=== PATIENT | female | born 1985 | race Caucasian/White ===

== ENCOUNTER 2018-02-04 19:21 | Emergency (ER) | payer MEDICAID ==
[~2018-02-04] VITALS: Ht 162.6 cm; Wt 85.9 kg
[2018-02-04 20:52] LABS: BASOPHIL % 1.9 % (0-2); PLATELET COUNT 316 x10^3mcL (130-400); RED CELL DISTRIBUTION WIDTH 12.6 % (11.5-14.5)
[2018-02-04 20:59] LABS: CALCIUM 8.6 mg/dL (8.5-10.1); CARBON DIOXIDE 29.2 mmol/L (21-32); CHLORIDE SERUM 98 mmol/L (98-107); GFR1 > 60 mL/min; GLUCOSE SERUM 220 mg/dL (74-106); POTASSIUM SERUM 3.3 mmol/L (3.5-5.1); SODIUM SERUM 136 mmol/L (136-145)
[2018-02-04 21:13] LABS: ALBUMIN 3.5 g/dL (3.4-5.0); ALKALINE PHOSPHATASE 69 U/L (46-116); ALT/SGPT 19 U/L (14-59); AST/SGOT 8 U/L (15-37); BILIRUBIN TOTAL 0.67 mg/dL (0.20-1.00); LIPASE 90 IU/L (73-393); TOTAL PROTEIN, SERUM 7.8 g/dL (6.4-8.2)
[2018-02-04 22:39] VITALS: BP 157/105
== END 2018-02-04 22:39 | disposition home or self-care (01) ==
LOC: ED 19:21
PROVIDERS: Emergency Medicine
DX: R11.2 Nausea with vomiting, unspecified (principal); R10.12 Left upper quadrant pain; R10.32 Left lower quadrant pain; E11.9 Type 2 diabetes mellitus without complications; I10 Essential (primary) hypertension
CPT/HCPCS: J1885; J2405; J7030

== ENCOUNTER 2018-04-05 12:22 | Emergency (ER) | payer MEDICAID ==
[~2018-04-05] VITALS: Ht 162.6 cm; Wt 78.0 kg
[2018-04-05 14:09] LABS: BASOPHIL % 0.9 % (0-2); PLATELET COUNT 369 x10^3mcL (130-400); RED CELL DISTRIBUTION WIDTH 14.1 % (11.5-14.5)
[2018-04-05 15:03] LABS: CALCIUM 9.4 mg/dL (8.5-10.1); CARBON DIOXIDE 25.4 mmol/L (21-32); CREATININE SERUM 1.4 mg/dL (0.6-1.0); POTASSIUM SERUM 3.3 mmol/L (3.5-5.1)
[2018-04-05 15:13] LABS: ALBUMIN 3.5 g/dL (3.4-5.0); BILIRUBIN TOTAL 0.67 mg/dL (0.20-1.00); T4(THYROXINE) 8.6 ug/dL (4.7-13.3); TOTAL PROTEIN, SERUM 8.2 g/dL (6.4-8.2)
[2018-04-05 16:10] LABS: UA SPECIFIC GRAVITY <=1.005 (1.005-1.035); microscopic required? YES; urine erythrocyte 1+ (NEGATIVE)
[2018-04-05 16:13] VITALS: BP 137/89
== END 2018-04-05 16:13 | disposition home or self-care (01) ==
LOC: ED 12:22
PROVIDERS: Emergency Medicine
DX: R10.13 Epigastric pain (principal); R11.10 Vomiting, unspecified; I10 Essential (primary) hypertension; E11.9 Type 2 diabetes mellitus without complications; E66.9 Obesity, unspecified; F17.210 Nicotine dependence, cigarettes, uncomplicated; Z90.49 Acquired absence of other specified parts of digestive tract
CPT/HCPCS: 82962; J2765; J7030; Q9967

== ENCOUNTER 2018-05-09 20:37 | Inpatient (IN) | payer MEDICAID ==
[~2018-05-09] VITALS: Ht 152.4 cm; Wt 77.2 kg
[2018-05-09 20:50] VITALS: Ht 152.4 cm; Wt 77.2 kg
--- NOTE | 2018-05-09 20:52 | NUR ---
PT SENT TO LOBBY TO WAIT FOR AVAILABLE BED. NO DISTRESS AND ALERT AND ORIENTED
--- NOTE | 2018-05-09 21:00 | NUR ---
PT CAME TO THE ED TODAY WITH C/O NAUSEA AND VOMTING WITH ABD PAIN. PT LEFT [facility] TODAY AFTER BEING ADMITTED FOR ONE WEEK. PT STATES THAT SHE LEFT BECAUSE "I DIDN'T WANT TO BE THERE ANYMORE." PT IS VOMITING IN ROOM, SHE APPEARS TO BE IN NO DISTRESS. WILL MONITOR.
[2018-05-09 21:52] LABS: BASOPHIL % 0.4 % (0-2); PLATELET COUNT 389 x10^3mcL (130-400); RED CELL DISTRIBUTION WIDTH 14.4 % (11.5-14.5)
[2018-05-09 21:58] LABS: CALCIUM 9.2 mg/dL (8.5-10.1); CARBON DIOXIDE 24.5 mmol/L (21-32); CHLORIDE SERUM 98 mmol/L (98-107); CREATININE SERUM 0.9 mg/dL (0.6-1.0); GFR1 > 60 mL/min; GLUCOSE SERUM 163 mg/dL (74-106); POTASSIUM SERUM 3.6 mmol/L (3.5-5.1); SODIUM SERUM 134 mmol/L (136-145)
[2018-05-09 22:10] LABS: ALBUMIN 3.3 g/dL (3.4-5.0); ALKALINE PHOSPHATASE 78 U/L (46-116); ALT/SGPT 37 U/L (14-59); AST/SGOT 21 U/L (15-37); BILIRUBIN TOTAL 0.6 mg/dL (0.20-1.00); FREE T4 1.39 ng/dL (0.76-1.46); LIPASE 82 IU/L (73-393); TOTAL PROTEIN, SERUM 7.4 g/dL (6.4-8.2)
--- NOTE | 2018-05-09 22:56 | NUR ---
PT AMBULATED TO RESTROOM TO PROVIDE URINE SAMPLE.
[2018-05-10] VITALS (8 sets, daily range): BP systolic 134–184; BP diastolic 80–90
[2018-05-10] LABS: UA SPECIFIC GRAVITY 1.025 (1.005-1.035); microscopic required? YES; urine erythrocyte TRACE (NEGATIVE)
[2018-05-10 00:16] LABS: AMPHETAMINE QUAL UR NONE DETECTED (See below)
[2018-05-10 01:12] LABS: CHOLESTEROL/HDL RATIO 3.5; MAGNESIUM 1.5 mg/dL (1.8-2.4); PHOSPHOROUS 2.7 mg/dL (2.5-4.9)
--- NOTE | 2018-05-10 02:30 | NUR ---
RECEIVED PT FROM ED VIA GURNEY, ACCOMPANY BY NURSE. FAMILY AT BEDSIDE. PT AAOX4, DENIES HEADACHE OR DIZZINESS. TELE 16 ST HR 118 DENIES CHEST PAIN OR PRESSURE. LUNG SOUNDS CTA ON RA, NO SOB NOTED. ABD SOFT AND ROUND, ACTIVE BOWEL SOUNDS, REPORTS FEELING NAUSEAUS. NO EDEMA NOTED. IV LEFT WRIST PATENT, NO SIGNS OF INFILTRATION. CALL BUTTON WITHIN REACH. WILL MONITOR.
--- NOTE | 2018-05-10 03:36 | NUR ---
PT REPORTED FEELING NAUSEAS, ZOFRAN GIVEN PER EMAR. PT REPORTED HAVING ABD PAIN 8/10, MEDICATED PER EMAR. WILL CONTINUE TO MONITOR.
[2018-05-10 06:20] LABS: BASOPHIL % 0.4 % (0-2); PLATELET COUNT 340 x10^3mcL (130-400); RED CELL DISTRIBUTION WIDTH 14.5 % (11.5-14.5)
--- NOTE | 2018-05-10 06:42 | NUR ---
ACCU CHECK 143 NO COVERAGE NEEDED PER SLIDING SCALE.
[2018-05-10 06:44] LABS: CALCIUM 8.2 mg/dL (8.5-10.1); CARBON DIOXIDE 24.5 mmol/L (21-32); CHLORIDE SERUM 102 mmol/L (98-107); CREATININE SERUM 0.6 mg/dL (0.6-1.0); GFR1 > 60 mL/min; GLUCOSE SERUM 154 mg/dL (74-106); MAGNESIUM 1.5 mg/dL (1.8-2.4); POTASSIUM SERUM 3.5 mmol/L (3.5-5.1); SODIUM SERUM 136 mmol/L (136-145)
--- NOTE | 2018-05-10 07:01 | NUR ---
PT SLEPT ON AND OFF WITH NO ACUTE DISTRESS NOTED. REPORTED FEELING NAUSEAS ON AND OFF, WITH ONE EPISODE OF VOMIT SMALL AMOUNT CLEAR LIQUID. IV PATENT, INFUSING WELL. CALL BUTTON WITHIN REACH. WILL CONTINUE TO MONITOR AND ENDORSE CARE TO DAY SHIFT RN.
--- NOTE | 2018-05-10 07:43 | NUR ---
ENDORSED CARE TO DAY SHIFT RN, ALL QUESTIONS ADDRESSED.
--- NOTE | 2018-05-10 08:30 | NUR ---
PATIENT C/O 10/10 EPIGASTRIC SHARP PAIN AND N/V. PATIENT MEDICATED WITH MORPHINE AND ZOFRAN (SEE EMAR). WILL CONTINUE TO MONITOR.
--- NOTE | 2018-05-10 09:26 | NUR ---
PATIENT VOMITED APPROX 300 ML OF YELLOW EMESIS. ZOFRAN PREVIOUSLY GIVEN (SEE EMAR). WILL CONTINUE TO MONITOR.
--- NOTE | 2018-05-10 12:40 | NUR ---
PATIENT VOMITED APPROX ANOTHER 300 ML OF YELLOW EMESIS. WILL CONTINUE TO MONITOR.
--- NOTE | 2018-05-10 13:00 | NUR ---
PATIENT C/O 10/10 EPIGASTRIC SHARP PAIN. NORCO SUGGESTED AND PATIENT REFUSED DUE TO NAUSEA AND STATES SHE CAN'T TAKE ORAL MEDICATIONS. PATIENT MEDICATED WITH MORPHINE (SEE EMAR). WILL CONTINUE TO MONITOR.
--- NOTE | 2018-05-10 17:10 | NUR ---
PATIENT C/O 10/10 SHARP EPIGASTRIC PAIN WITH N/V. PATIENT MEDICATED WITH MORPHINE AND ZOFRAN (SEE EMAR). WILL CONTINUE TO MONITOR.
--- NOTE | 2018-05-10 19:30 | NUR ---
PT SEEN, ASLEEP BUT EASILY AROUSABLE, ALERT AND ORIENTED, DENIES HEADACHE OR DIZZINESS, BREATHING EVEN AND UNLABORED, LUNG SOUNDS CLEAR, ON ROOM AIR WITH NO RESP DISTRESS NOTED, IVF INFUSING WELL, PULSES PALPABLE, NO EDEMA NOTED, MILD GENERALIZED WEAKNESS, ABD DISTENDED BUT SOFT WITH HYPOACTIVE BS, NO BM AT THIS TIME, NPO, N&V NOTED AT TIMES, VOIDING FREELY, NEEDY AT TIMES.
[2018-05-11 05:30] VITALS: BP 166/97
--- NOTE | 2018-05-11 05:30 | NUR ---
PT AWAKE AND AMBULATED TO BATHROOM, SLEPT ON AND OFF WHOLE NIGHT, ON AND OFF N&V, MEDICATED MORPHINE 2MG VIA IVP X 3 FOR ABD PAIN WITH GOOD RELIEF, BP-166/97, HYDRALAZINE 10 MG VIA IVP, OLD IV SITE TO LW INFILTRATED, RE-INSERTED TO WITH 22G. NO DISTRESS NOTED, WILL KEEP TO MONITOR.
[2018-05-11 06:34] VITALS: BP 142/70
[2018-05-11 07:57] LABS: CALCIUM 8.3 mg/dL (8.5-10.1); CARBON DIOXIDE 26.3 mmol/L (21-32); CHLORIDE SERUM 99 mmol/L (98-107); CREATININE SERUM 0.6 mg/dL (0.6-1.0); GFR1 > 60 mL/min; GLUCOSE SERUM 117 mg/dL (74-106); MAGNESIUM 1.6 mg/dL (1.8-2.4); PHOSPHOROUS 3.6 mg/dL (2.5-4.9); SODIUM SERUM 134 mmol/L (136-145)
[2018-05-11 08:11] LABS: BASOPHIL % 0.7 % (0-2); PLATELET COUNT 350 x10^3mcL (130-400)
[2018-05-11 08:14] LABS: RED CELL DISTRIBUTION WIDTH 14.7 % (11.5-14.5)
[2018-05-11 08:18] VITALS: BP 153/93
--- NOTE | 2018-05-11 10:03 | NUR ---
DR PAYNE AND DR ZAVALA AT BEDSIDE AND DISCUSSED THE POC WITH PT AND PT'S MOTHER. PER DR PAYNE THAT OKAY TO LET PT HAVE WATER AT THIS TIME. CT A/P DONE.
--- NOTE | 2018-05-11 13:22 | NUR ---
BEDSIDE HANDOFF REPORT DONE WITH VESNA-RN, ALL QUESTIONS ANSWERED AND CONCERNS ADDRESSED. PT ASLEEP AND APPEARS COMFORTABLE. NO S&S OF PAIN OR DISCOMFORT.
--- NOTE | 2018-05-11 13:27 | NUR ---
BEDSIDE REPORT RECEIVED FROM LARS RN; PT ASLEEP AT THIS TIME, NO S/S CHEST PAIN, DISCOMFORT, OR RESPIRATORY DISTRESS. SIDE RAILS UP X 2, BED IN LOW POSITION, CALL LIGHT WITHIN REACH. WILL CONTINUE TO MONITOR.
--- NOTE | 2018-05-11 14:59 | NUR ---
PT C/O NAUSEA AND BURNING ABD PAIN 09/22; GIVEN ZOFRAN 4MG IVP AND MORPHINE 2MG IVP; DARKENED ROOM, TURNED OFF TV FOR COMFORT. WILL CONTINUE TO MONITOR.
--- NOTE | 2018-05-11 15:23 | NUR ---
1. Advance diet to [facility] when medically appropriate and tolerated.
--- NOTE | 2018-05-11 15:23 | NUR ---
Initial Nutrition Assessment- -A TEMO GOTTI IA HR Dx: Intractable abdominal pain PMHx: gastroparesis, HTN, DM, PSHx: cholecystectomy Labs: Na 134L, K 3.0L, (BG readings from 05/10-05/11: 106-121 all under 180,insulin coverage provided PRN) , BUN 6.0L, Meds: D50, Humilin 3 ml PRN, Pepcid 20 mg, Reglan 5 mg, Zofran 4 mg Diet: clear liquid diet (per current diet order by MD) PO Intake: none documented as pt was previously NPO Ht: 152.4 cm 60 inches Wt: 77.2 kg (169.8 #) BMI: 33.2 kg/m2 IBW: 100 # 45.5 kg %IBW:170 UBW: unable to access Age: 32/F Food Allergies: NKFA Skin: intact Vj: 19 Edema: none GI: last BM 05/07/18 Per H&P, Pt is 32 year old female admitted for 10 abdominal pain in epigastric region and nausea. She was admitted to [facility] 3 weeks ago and diagnosed with gastroparesis however left against medical advice. Imaging: ABD: KUB (AP/PA) (05/10/18) Findings: A single AP view of the abdomen shows a nonspecific abdominal gas pattern. There is no free air or submucosal air demonstrated. No abnormal calcifications are demonstrated. (per imaging report) Pt visit, pt was sleeping so acquired diet related information from nurse in charge. Diet was progressed from NPO to clear liquid. However, pt refused it. She complain of nausea and abdominal pain. Problem with: N: yes V/D/C: No Problems with: Chewing: No Swallowing: No Current appetite: Unknown Recent wt change: unable to access Vitamin/Supplement use: unknown Special diet at home: unknown Physical activity: unknown Education: No diet education provided at this time. Estimated Nutritional Needs Based on actual body weight 77.2 kg Energy: 1138- 1365 kcal/d (25-30 kcal/kg IBW-maintenance) Protein: 46-55 g/d (1-1.2g/kg IBW)-maintenance and preservation of lean body mass Fluid: 2911-0182 ml/d (1 ml/kcal-fluid balance) or per doctor Nutrition Diagnosis 1. Altered GI function related to gastroparesis as evidenced by nausea and abdominal pain. 2. Inadequate energy intake related to nausea and abdominal pain as evidenced by NPO/ clear liquid diet orders and declining oral intake. Intervention 1. Advance diet to [facility] when medically appropriate and tolerated. Monitor/Evaluate Goal: PO intake at least % of estimated needs Monitor: PO intake, Labs, GI function F/U in 3-5 days as moderate risk due 05/14-05/16
--- NOTE | 2018-05-11 17:20 | NUR ---
PT IN BED, A/A/O X 4, TALKING TO FRIEND BY BEDSIDE. DENIES CHEST PAIN OR DISCOMFORT AT THIS TIME. NO ACUTE RESPIRATORY DISTRESS NOTED. SIDE RAILS UP X 2, BED IN LOW POSITION, CALL LIGHT WITHIN REACH. WILL ENDORSE TO NOC SHIFT.
[2018-05-11 17:31] VITALS: BP 183/97
--- NOTE | 2018-05-11 17:45 | NUR ---
PT'S BP 184/97, HR 104; GIVEN HYDRALAZINE IVP 10MG; WILL CONTINUE TO MONITOR.
[2018-05-11 18:51] VITALS: BP 126/80
--- NOTE | 2018-05-11 19:00 | NUR ---
ENDORSED PT TO NILES CANTOR; PT A/A/O X 4, CALM, COOPERATIVE. DENIES CHEST PAIN OR DISCOMFORT AT THIS TIME. NO ACUTE RESPIRATORY DISTRESS NOTED. SIDE RAILS UP X 2, BED IN LOW POSITION, CALL LIGHT WITHIN REACH.
--- NOTE | 2018-05-11 19:50 | NUR ---
PT RECIEVED FROM THE DAY SHIFT RN, PT IS ALERT AND ORIENTED X4, PT IV IS INFUSING AND INTACT AT THIS TIME. PT COMPLAINS OF GENERALIZED ABDOMINAL PAIN, PT STATES IT FEELS LIKE A PULSATING PAIN, WILL MEDICATE WITH PRN MEDICATION, PT STATES NAUSEA HAS GOTTEN BETTER, SAFETY AND COMFORT MEASURES MAINTAINED, BED IN LOWEST POSITION, CALL LIGHT WITHIN REACH, WILL CONTINUE TO MONITOR AT THIS TIME.
[2018-05-11 21:03] VITALS: BP 147/88
--- NOTE | 2018-05-11 22:51 | NUR ---
PT IS RESTING IN BED WITH EYES CLOSED AT THIS TIME, NO ACUTE DISTRESS NOTED, SAFETY AND COMFORT MEASURES MAINTAINED, BED IN LOWEST POSITION, CALL LIGHT WITHIN REACH, WILL CONTINUE TO MONITOR AT THIS TIME.
--- NOTE | 2018-05-12 01:10 | NUR ---
PT STATES PAIN IN THE UPPER EPIGASTRIC AREA AND PAIN IS A 8/10 AND STATES IT FEELS LIKE "ITS PULSATING." WILL MEDICATE WITH PRN NORCO AT THIS TIME.
--- NOTE | 2018-05-12 03:08 | NUR ---
PT IS RESTING WITH EYES CLOSED, NO ACUTE DISTRESS NOTED, NO SOB NOTED, NO FACIAL GRIMACING NOTED. PT HAS BEEN CALM AND COOPERATIVE WITH CARE, SAFETY AND COMFORT MEASURES MAINTAINED, BED IN LOWEST POSITION, CALL LIGHT WITHIH REACH.
--- NOTE | 2018-05-12 04:18 | NUR ---
PT IS RESTING IN BED WITH EYES CLOSED AT THIS TIME. NO ACUTE DISTRESS NOTED, NO FACIAL GRIMACING NOTED, PT HAS BEEN CALM AND COOPERATIVE WITH CARE AT THIS TIME. SAFETY AND COMFORT MEASURES MAINTAINED, BED IN LOWEST POSITION, CALL LIGHT WITHIN REACH, WILL CONTINUE TO MONITOR AT THIS TIME.
[2018-05-12 05:08] VITALS: BP 130/80
--- NOTE | 2018-05-12 05:19 | NUR ---
PT RESTED IN LONG INTERVALS THROUGHOUT THE SHIFT, NO ACUTE DISTRES NOTED, NO ACUTE EVENTS OCCURED THROUGHOUT THE SHIFT, PT HAS NO COMPLAINT OF NAUSEA OR PAIN AT THIS TIME. PT HAS BEEN CALM AND COOPERATIVE WITH CARE, ALERT AND ORIENTED X4, SAFETY AND COMFORT MEASURES MAINTAINED, BED IN LOWEST POSITION, CALL LIGHT WITHIN REACH, IV INFUSING AND INTACT. WILL CONTINUE TO MONITOR.
[2018-05-12 05:46] LABS: BASOPHIL % 0.5 % (0-2); PLATELET COUNT 331 x10^3mcL (130-400); RED CELL DISTRIBUTION WIDTH 14.5 % (11.5-14.5)
[2018-05-12 05:58] LABS: CALCIUM 7.9 mg/dL (8.5-10.1); CARBON DIOXIDE 28.4 mmol/L (21-32); CHLORIDE SERUM 101 mmol/L (98-107); CREATININE SERUM 0.5 mg/dL (0.6-1.0); GFR1 > 60 mL/min; GLUCOSE SERUM 103 mg/dL (74-106); MAGNESIUM 1.8 mg/dL (1.8-2.4); PHOSPHOROUS 3.5 mg/dL (2.5-4.9); SODIUM SERUM 135 mmol/L (136-145)
--- NOTE | 2018-05-12 07:10 | NUR ---
RECEIVED REPORT FROM ACCOUNTING FILE CLERK NURSE AT THIS TIME. PATIENT RESTING COMFORTABLY IN BED. NO APPARENT DISTRESS OR DISCOMFORT NOTED. BREATHING EVEN AND UNLABORED. NO RESPIRATORY DISTRESS NOTED. PATIENT DENIES CHEST PAIN AT THIS TIME. IV PATENT AND INTACT. ALL QUESTIONS AND CONCERNS ADDRESSED. ALL NEEDS ATTENDED TO. WILL CONTINUE TO MONITOR
[2018-05-12 07:51] VITALS: BP 156/92
--- NOTE | 2018-05-12 09:20 | NUR ---
PATIENT C/O 10/10 ABD PAIN AT THIS TIME. PRN MORPHINE ADMINISTERED. (SEE EMAR) PATIENT TOLERATED MEDICATION ADMINISTRATION WELL. NO ADVERSE EFFECTS NOTED. ALL NEEDS ATTENDED TO. WILL CONTINUE TO MONITOR
--- NOTE | 2018-05-12 10:00 | NUR ---
ALL MORNING MEDICATIONS ADMINISTERED. PATIENT TOLERATED WELL. NO APPARENT DISTRESS OR DISCOMFORT NOTED. NO ADVERSE EFFECTS NOTED. ALL NEEDS ATTENDED TO. WILL CONTINUE TO MONITOR
--- NOTE | 2018-05-12 10:36 | NUR ---
PATIENT HAD EMESIS X1. TRANSDERM-SCOP PLACED BEHIND PATIENTS LEFT EAR. PRN ZOFRAN ADMINISTERED (SEE EMAR). PATIENT TOLERATED WELL. NO ADVERSE EFFECTS NOTED. WILL CONTINUE TO MONITOR
--- NOTE | 2018-05-12 12:25 | NUR ---
PATIENT BLOOD SUGAR 130 AT THIS TIME. NO INSULIN COVERAGE REQUIRED. NO APPARENT DISTRESS OR DISCOMFORT NOTED. ALL NEEDS ATTENDED TO. WILL CONTINUE TO MONITOR
[2018-05-12 16:10] VITALS: BP 160/87
--- NOTE | 2018-05-12 17:12 | NUR ---
PATIENT BP 160/87 HEART RATE 99. ADMINISTERED HYDRALAZINE PO AT THIS TIME. PATIENT TOLERATED WELL. NO ADVERSE EFFECTS NOTED. ALL NEEDS ATTENDED TO. WILL RECHECK BLOOD PRESSURE
[2018-05-12 18:23] VITALS: BP 155/88
--- NOTE | 2018-05-12 19:06 | NUR ---
PATIENT RESTING COMFORTABLY IN BED AT THIS TIME. NO APPARENT DISTRESS OR DISCOMFORT NOTED. IV PATENT AND INTACT. ALL QUESTIONS AND CONCERNS ADDRESSED. SAFETY PRECAUTIONS MAINTAINED. ALL NEEDS ATTENDED TO. WILL ENDORSE ALL CARE TO SENIOR [employer]AL PARACHUTIST NURSE
--- NOTE | 2018-05-12 19:25 | NUR ---
REPORT RECIEVED FROM DAY SHIFT RN. PATIENT WAS SEEN AND IS RESTING COMFORTBALY IN BED. ON ROOM AIR. BREATHING EVEN. NO DISTRESS NOTED. NO SOB. DENIES CHEST PAIN. NO C/O OF PAIN. IV TO THE RIGHT HAND INFUSING WELL. PATIENT AND INTACT. NO REDNESS OR SWELLING NOTED. COMFORT AND SAFETY MEASURES MAINTAINED. BED IS LOCKED AND IN THE LOWEST POSITION. SIDE RAILS UP X2. CALL LIGHT IS WITHIN REACH. INSTRUCTED PATIENT TO CALL FOR ASSISTANCE. WILL CONTINUE TO MONITOR.
[2018-05-12 21:04] VITALS: BP 148/91
--- NOTE | 2018-05-13 03:51 | NUR ---
PATIENT RESTING WITH EYES CLOSED AT THIS TIME. NO DISTRESS NOTED. BREATHIN EVEN. IV TO THE RIGHT HAND INFUSING WELL. CALL LIGHT IS WITHIN REACH. WILL CONTINUE TO MONITOR.
[2018-05-13 05:27] VITALS: BP 150/83
--- NOTE | 2018-05-13 06:55 | NUR ---
PATIENT SLEPT IN LONG INTERVALS THROUGHOUT THE NIGHT. NO ACUTE CHANGES NOTED. DENIES NAUSEA AT THIS TIME. ON ROOM AIR. BREATHING EVEN. NO DISTRESS NOTED. IV TO RIGHT HAND. PATENT AND INTACT. NO REDNESS OR SWELLING NOTED. NO C/O OF PAIN THROUGHOUT THE NIGHT. EDUCATED PATIENT ON ALL SCHEDULED MEDS. COMFORT AND SAFETY MEASURES MAINTAINED. BED IS LOCKED AND IN THE LOWEST POSITION. SIDE RAILS UP X2. CALL LIGHT IS WITHIN REACH. WILL ENDORSE CARE TO DAY SHIFT RN.
--- NOTE | 2018-05-13 07:05 | NUR ---
RECEIVED PATIENT FROM RECORDS MANAGER NURSE AT THIS TIME. PATIENT RESTING COMFORTABLY IN BED. NO APPARENT DISTRESS OR DISCOMFORT NOTED. BREATHING EVEN AND UNLABORED. NO RESPIRATORY DISTRESS NOTED. NO INDICATION OF CHEST PAIN AT THIS TIME. IV PATENT AND INTACT. ALL QUESTIONS AND CONCERNS ADDRESSED. ALL NEEDS ATTENDED TO. WILL CONTINUE TO MONITOR
[2018-05-13 07:23] LABS: BASOPHIL % 0.7 % (0-2); PLATELET COUNT 332 x10^3mcL (130-400)
[2018-05-13 07:48] LABS: CALCIUM 8.1 mg/dL (8.5-10.1); CARBON DIOXIDE 27.7 mmol/L (21-32); CHLORIDE SERUM 101 mmol/L (98-107); CREATININE SERUM 0.5 mg/dL (0.6-1.0); GFR1 > 60 mL/min; GLUCOSE SERUM 124 mg/dL (74-106); MAGNESIUM 1.6 mg/dL (1.8-2.4); PHOSPHOROUS 2.8 mg/dL (2.5-4.9); POTASSIUM SERUM 3.4 mmol/L (3.5-5.1); SODIUM SERUM 136 mmol/L (136-145)
[2018-05-13 08:01] LABS: RED CELL DISTRIBUTION WIDTH 14.8 % (11.5-14.5)
--- NOTE | 2018-05-13 08:05 | NUR ---
REPORTED TO HEALTH UNIT SUPERVISOR DEREK PATIENTS POTASSIUM OF 3.4 AND MAG OF 1.6. WILL PROCEED ORDERED. WILL CONTINUE TO MONITOR PATIENT
[2018-05-13 09:00] VITALS: BP 149/72
--- NOTE | 2018-05-13 09:14 | NUR ---
PATIENT EMESIS X1. MEDICATED WITH PHENERGAN IVP AT THIS TIME. PATIENT TOLERATED WELL. ALL NEEDS ATTENDED TO. WILL CONTINUE TO MONITOR
--- NOTE | 2018-05-13 09:48 | NUR ---
ALL MORNING MEDICATIONS ADMINISTERED. PATIENT TOLERATED MEDICATIONS WELL. NO ADVERSE EFFECTS NOTED. WILL CONTINUE TO MONITOR
--- NOTE | 2018-05-13 11:30 | NUR ---
PATIENT BLOOD SUGAR 171. 3 UNITS OF INSULIN COVERAGE REQUIRED. INSULIN NOT ADMINISTERED AT THIS TIME. PATIENT C/O POOR APPETITE. NICK ROGERS WILL CONTINUE TO MONITOR
--- NOTE | 2018-05-13 16:30 | NUR ---
PATIENT BLOOD SUGAR 163 AT THIS TIME. 3 UNITS INSULIN REQUIRED. (SEE EMAR). WILL CONTINUE TO MONITOR
[2018-05-13 17:03] VITALS: BP 138/85
--- NOTE | 2018-05-13 18:49 | NUR ---
PATIENT RESTING COMFORTABLY IN BED AT THIS TIME. NO APPARENT DISTRESS OR DISCOMFORT NOTED. IV PATENT AND INTACT. ALL QUESTIONS AND CONCERNS ADDRESSED. SAFETY PRECAUTIONS MAINTAINED. ALL NEEDS ATTENDED TO. WILL ENDORSE ALL CARE TO FOLLOW UP CLERK NURSE
--- NOTE | 2018-05-13 19:20 | NUR ---
RECEIVED REPORT FROM MATHIEU CAGE. WILL CONTINUE TREATMENT AND CARE.
--- NOTE | 2018-05-13 19:45 | NUR ---
ASSESSED PT. AAOX4, SPEECH CLEAR. BREATHING EVEN AND UNLABORED. PT ON RA. PT STATES NO PAIN AT THIS TIME. LUNG SOUNDS CLEAR TO AUSCULATION. BS ACTIVE X4. PT STATES NO N/V AT THIS TIME. NS RUNNING AT 100CC/HR TO R HAND 22 G. NO S/SX OF INFILTRATION OR PHLEBITIS NOTED. SKIN INTACT. PT IS AMBULATORY. BED IN LOW POSITION. CALL LIGHT WITHIN REACH. WILL CONTINUE TO MONTIOR.
[2018-05-13 21:38] VITALS: BP 150/99
--- NOTE | 2018-05-13 22:54 | NUR ---
MAG 1.6, K+ 3.4.PT GIVEN MAG OX 400MG PO AND POTASSIUM CHLORIDE 40MEQ PO PER DR. MARICRUZ BLAIR.
--- NOTE | 2018-05-14 00:37 | NUR ---
PT GIVEN ROUTINE REGLAN PER MD ORDER. NO N/V NOTED AT THIS TIME.
--- NOTE | 2018-05-14 05:12 | NUR ---
PT RESTING COMFORTABLY IN BED AND SLEPT WELL THROUGHOUT NIGHT. NO PAIN THOUGHOUT SHIFT. NO SOB OF RESPIRATORY DISTRESS. NO N/V. IV FLUIDS REMAIN INFUSING AT 100CC/HR TO R HAND, INTACT AND PATENT. NO INFILTRATION OR PHLEBITIS NOTED. ALL NEEDS MET AND ANTICIPATED. BED IN LOW POSITION. WILL ENDORSE TO ONCOMING NURSE.
[2018-05-14 05:23] VITALS: BP 154/87
--- NOTE | 2018-05-14 07:20 | NUR ---
ALERT AND ORIENTED. BREATHING FREELY ON RA. HAVING N/V. ADMIN ZOFRAN. IB TO RT HAND BEGINNING TO SWELL AND WILL NEED TO BE REINSERTED. BRP. FULL LIQUIDS. MED SURG PT. INDEPENDENT W ADL'S. CALL LIGHT WITHIN REACH.
--- NOTE | 2018-05-14 07:29 | NUR ---
GAVE REPORT TO LAKESHA CAGE. ALL QUESTIONS AND CONCERNS ADDRESSED.
[2018-05-14 08:20] VITALS: BP 138/97
[2018-05-14 08:42] LABS: CALCIUM 8.9 mg/dL (8.5-10.1); CHLORIDE SERUM 101 mmol/L (98-107); CREATININE SERUM 0.6 mg/dL (0.6-1.0); GFR1 > 60 mL/min; GLUCOSE SERUM 158 mg/dL (74-106); MAGNESIUM 1.5 mg/dL (1.8-2.4); POTASSIUM SERUM 3.3 mmol/L (3.5-5.1); SODIUM SERUM 136 mmol/L (136-145)
--- NOTE | 2018-05-14 12:11 | NUR ---
PT CONTINUES TO FEEL NAUSEOUS. IV HAND SWOLLEN. NEEDS NEW IV. PT. REFUSES AT THIS TIME, SAYS SHE CAN N OT TAKE HER PO KCL AT THIS TIME EITHER.
[2018-05-14 16:42] VITALS: BP 158/97
--- NOTE | 2018-05-14 19:00 | NUR ---
RECEIVED PT IN BED ASLEEP EASILY AROUSABLE.NO SOB NOTED. NO C/O PAIN AT THIS TIME. DENIES NAUSEA AND VOMITING.IV SITE PATENT AND INTACT. BED IN LOWEST POSITION,CALL LIGHT WITHIN REACH. WILL CONTINUE TO MONITOR.
--- NOTE | 2018-05-14 20:06 | NUR ---
MULTIPLE EMESIS THIS AM. PT SLEPT ALOT OF THE AFTERNOON WHEN SHE QUIT VOMITING. RECEIVED MAG RIDER,KRIDER AND ROCEPHIN. NS INFUSING 100 CC HOUR. BRP. POOR APPETITE WITH FULL LIQUIDS. CALL LIGHT WITH IN REACH. INDEPENDENT W ADL'S.
[2018-05-14 20:44] VITALS: BP 155/101
--- NOTE | 2018-05-15 00:30 | NUR ---
PT VOMITED X1 WITH 50CC VOMITUS. MEDICATED REGLAN ORDERED. WILL CONTINUE TO MONITOR.
[2018-05-15 04:49] VITALS: BP 125/79
[2018-05-15 06:31] LABS: PLATELET COUNT 364 x10^3mcL (130-400)
[2018-05-15 06:42] LABS: CALCIUM 8.7 mg/dL (8.5-10.1); CARBON DIOXIDE 28.2 mmol/L (21-32); CHLORIDE SERUM 100 mmol/L (98-107); CREATININE SERUM 0.6 mg/dL (0.6-1.0); GFR1 > 60 mL/min; GLUCOSE SERUM 124 mg/dL (74-106); POTASSIUM SERUM 3.4 mmol/L (3.5-5.1); SODIUM SERUM 134 mmol/L (136-145)
[2018-05-15 06:44] LABS: RED CELL DISTRIBUTION WIDTH 14.6 % (11.5-14.5)
--- NOTE | 2018-05-15 07:10 | NUR ---
RECEIVED PT FROM FIRER RETORT. PT AWAKE, ALERT. A/OX4. PT ON ROOM AIR WITH NO RESP DISTRESS NOTED. PT DENIES HEADACHE. PT DENIES PAIN AND NAUSEA AT THIS TIME. IV ACCESS LEFT HAND, C/D/I SALINE LOCKED AT THIS TIME. PT REFUSES FLUIDS AT THIS TIME. HYPOACTIVE BOWEL SOUNDS NOTED. PT REPORTS LAST BM 05/10. PT NOTED TO HAVE MILD WEAKNESS. SAFETY MEASURES IN PLACE, BED LOW AND LOCKED. CALL LIGHT WITHIN REACH.
--- NOTE | 2018-05-15 07:24 | NUR ---
CARE ENDORSED TO DAY NURSE FERNIE.
[2018-05-15 09:49] VITALS: BP 156/100
[2018-05-15 09:50] VITALS: BP 167/99
--- NOTE | 2018-05-15 10:05 | NUR ---
CALLED AND SPOKE TO SIDDHRATH(N.P.) OF CURRENT BP-166/99, SHE SAYS WILL ADD BP MEDICATION.
[2018-05-15] MEDS ORDERED: NOR5 PO (10:11)
[2018-05-15] MEDS ORDERED: ZESTRIL20 MG PO (10:11)
[2018-05-15 10:21] VITALS: BP 167/99
--- NOTE | 2018-05-15 12:53 | NUR ---
1. Advance diet to [facility] when medically appropriate and tolerated.
--- NOTE | 2018-05-15 12:53 | NUR ---
Follow-up Nutrition Assessment- NARESH GOTTITANJA MORENO MR Dx: INTRACTABLE ABDOMINAL PAIN Labs: (05/15) NA 134H, K 3.4L, BG 124H, BUN 4.0L, MG 1.5L, Meds: D50, Humulin, kcl 10%, mag-ox 400mg , Pepcid, Reglan, zofran Diet: Full liquid PO intake: not documented Weights: (05/10/18) 77 KG (170#) Skin: intact Vj:19 Edema: none Last BM: 05/10/18 RDN visit, patient was awake and alert. She said that on a scale of 1-10, she has an appetite of 4. She consumed some of her lunch today. She complains of constipation. No N/V/D at this time. Patient denied DM diet education. Estimated Nutritional Needs based on IBW 46 kg: Energy: 1150- 1380 kcal (25-30 kcal-maintenance) Protein: 46-55 g (1-1.2 g/kg-maintenance and prevention of lean body mass losses) Fluid: 3873-5873 mL (1 mL/kcal or per MD order-for fluid balance and maintenance) Nutrition Diagnosis 1. Inadequate energy intake related to medical condition as evidenced by self- reported poor oral intake and restrictive diet orders since admission. Intervention 1. Advance diet to [facility] when medically appropriate and tolerated. Monitor/Evaluate Previous goal: PO intake at least 75% of estimated needs (not met) Goal: PO intake at least 75% of estimated needs Monitor: PO intake, Labs, GI function F/U in 3-5 days as moderate risk : 05/18-05/20
--- NOTE | 2018-05-15 14:15 | NUR ---
DISCHARGE INSTRUCTIONS/EDUCATION PROVIDED TO PT. PT VERBALIZED UNDERSTANDING. PT TO FOLLOW UP WITH PCP. NO ACUTE DISTRESS/ DISCOMFORT, NAUSEA OR VOMITING AT THIS TIME. IV ACCESS REMOVED WITH CATHETER INTACT. PT TOLERATED WELL. NO ERRYTHEMA, SWELLING OR BLEEDING NOTED. SAFETY MAINTAINED. EDUCATION PROVIDED ON NEW MEDICATION.
--- NOTE | 2018-05-15 14:32 | NUR ---
PT TAKEN BY WHEELCHAIR TO FAMILY CAR. SAFETY MAINTAINED.
== END 2018-05-15 14:35 | disposition home or self-care (01) | DRG 48 ==
LOC: ED 20:37 → DU 05-10 00:32 → MU 05-10 00:32 → DU 05-10 02:12 → MU 05-11 11:17
PROVIDERS: Emergency Medicine; General Practice; ADMIT Internal Medicine
DX: E11.43 Type 2 diabetes mellitus with diabetic autonomic (poly)neuropathy (principal); N17.0 Acute kidney failure with tubular necrosis; E11.65 Type 2 diabetes mellitus with hyperglycemia; E87.1 Hypo-osmolality and hyponatremia; E83.42 Hypomagnesemia; N39.0 Urinary tract infection, site not specified; K31.84 Gastroparesis; I16.0 Hypertensive urgency; K59.00 Constipation, unspecified; F12.10 Cannabis abuse, uncomplicated; F13.10 Sedative, hypnotic or anxiolytic abuse, uncomplicated; F11.10 Opioid abuse, uncomplicated; R80.9 Proteinuria, unspecified; Z68.26 Body mass index [BMI] 26.0-26.9, adult; Z79.84 Long term (current) use of oral hypoglycemic drugs; Z91.19 Patient's noncompliance with other medical treatment and regimen
CPT/HCPCS: 82962; 83880; 84439; G0480; J0360; J0696; J2270; J2405; J2550; J2765; J3475; J3480; J3490; J7030; Q0092

== ENCOUNTER 2018-05-19 19:13 | Inpatient (IN) | payer MEDICAID ==
[~2018-05-19] VITALS: Ht 165.1 cm; Wt 79.4 kg
[~2018-05-19 19:13] MED LIST: NOR5 PO; ZESTRIL20 MG PO
[2018-05-19 19:19] VITALS: Ht 165.1 cm; Wt 79.4 kg
[2018-05-19 20:01] LABS: BASOPHIL % 0.5 % (0-2); RED CELL DISTRIBUTION WIDTH 14.4 % (11.5-14.5)
[2018-05-19 20:04] LABS: CALCIUM 9.3 mg/dL (8.5-10.1); CARBON DIOXIDE 22.3 mmol/L (21-32); CHLORIDE SERUM 98 mmol/L (98-107); CREATININE SERUM 0.8 mg/dL (0.6-1.0); GFR1 > 60 mL/min; GLUCOSE SERUM 202 mg/dL (74-106); POTASSIUM SERUM 3.4 mmol/L (3.5-5.1); SODIUM SERUM 136 mmol/L (136-145)
[2018-05-19 20:05] LABS: PLATELET COUNT 401 x10^3mcL (130-400)
[2018-05-19 20:09] LABS: ALBUMIN 3.5 g/dL (3.4-5.0); ALKALINE PHOSPHATASE 76 U/L (46-116); ALT/SGPT 32 U/L (14-59); AST/SGOT 23 U/L (15-37); BILIRUBIN TOTAL 0.78 mg/dL (0.20-1.00); LIPASE 72 IU/L (73-393); TOTAL PROTEIN, SERUM 7.3 g/dL (6.4-8.2)
[2018-05-19] MEDS ORDERED: REG50I (21:05)
[2018-05-19] MEDS ORDERED: ZOF4 (21:05)
[2018-05-20 21:43] LABS: BASOPHIL % 0.3 % (0-2); PLATELET COUNT 393 x10^3mcL (130-400)
[2018-05-20 21:47] LABS: RED CELL DISTRIBUTION WIDTH 14.6 % (11.5-14.5)
[2018-05-20 21:52] LABS: CALCIUM 8.4 mg/dL (8.5-10.1); CARBON DIOXIDE 23.6 mmol/L (21-32); CHLORIDE SERUM 97 mmol/L (98-107); CREATININE SERUM 0.6 mg/dL (0.6-1.0); GFR1 > 60 mL/min; GLUCOSE SERUM 137 mg/dL (74-106); SODIUM SERUM 134 mmol/L (136-145)
[2018-05-20 21:54] LABS: POTASSIUM SERUM 2.7 mmol/L (3.5-5.1)
[2018-05-20 22:00] VITALS: BP 149/77
[2018-05-20 22:02] LABS: CHOLESTEROL/HDL RATIO 3.3; MAGNESIUM 1.2 mg/dL (1.8-2.4); PHOSPHOROUS 3.3 mg/dL (2.5-4.9)
[2018-05-20 22:16] LABS: T3 TOTAL 0.99 ng/mL
[2018-05-20 22:31] LABS: FREE T4 1.47 ng/dL (0.76-1.46); FREE THYROXINE INDEX 3.6 ug/dL (1.4-4.5); T4(THYROXINE) 8.6 ug/dL (4.7-13.3)
[2018-05-21 05:48] VITALS: BP 151/96
[2018-05-21 07:19] LABS: BASOPHIL % 0.4 % (0-2); PLATELET COUNT 315 x10^3mcL (130-400)
[2018-05-21 07:21] LABS: CHLORIDE SERUM 98 mmol/L (98-107); SODIUM SERUM 133 mmol/L (136-145)
[2018-05-21 07:23] LABS: RED CELL DISTRIBUTION WIDTH 14.8 % (11.5-14.5)
[2018-05-21 08:03] LABS: CALCIUM 8.4 mg/dL (8.5-10.1); CARBON DIOXIDE 19.3 mmol/L (21-32); CREATININE SERUM 0.4 mg/dL (0.6-1.0); GFR1 > 60 mL/min; GLUCOSE SERUM 140 mg/dL (74-106); MAGNESIUM 1.8 mg/dL (1.8-2.4)
[2018-05-21 09:49] VITALS: BP 152/94
[2018-05-21 10:52] LABS: UA SPECIFIC GRAVITY >=1.030 (1.005-1.035); microscopic required? YES; urine erythrocyte TRACE (NEGATIVE)
[2018-05-21 14:09] VITALS: BP 169/93
[2018-05-21 15:31] LABS: AMPHETAMINE QUAL UR NONE DETECTED (See below)
[2018-05-21 17:45] VITALS: BP 154/93
[2018-05-21 21:39] VITALS: BP 151/98
[2018-05-22 05:32] VITALS: BP 147/87
[2018-05-22 07:04] LABS: CARBON DIOXIDE 26.5 mmol/L (21-32); CHLORIDE SERUM 104 mmol/L (98-107); CREATININE SERUM 0.5 mg/dL (0.6-1.0); GFR1 > 60 mL/min; GLUCOSE SERUM 118 mg/dL (74-106); SODIUM SERUM 138 mmol/L (136-145)
[2018-05-22 07:08] LABS: BASOPHIL % 0.7 % (0-2); PLATELET COUNT 343 x10^3mcL (130-400)
[2018-05-22 07:11] LABS: RED CELL DISTRIBUTION WIDTH 14.6 % (11.5-14.5)
[2018-05-22 07:20] LABS: POTASSIUM SERUM 2.8 mmol/L (3.5-5.1)
[2018-05-22 12:52] VITALS: BP 186/104
[2018-05-22 16:19] VITALS: BP 167/102
[2018-05-22 17:28] VITALS: BP 148/96
== END 2018-05-22 19:11 | disposition left against medical advice (07) | DRG 48 ==
LOC: ED 19:13 → EDBEDREQSVC 21:26 → EDBEDREQ 05-20 20:52 → DU 05-20 21:06
PROVIDERS: Emergency Medicine; Internal Medicine; ADMIT Family Medicine
DX: E11.43 Type 2 diabetes mellitus with diabetic autonomic (poly)neuropathy (principal); E11.65 Type 2 diabetes mellitus with hyperglycemia; K31.84 Gastroparesis; I10 Essential (primary) hypertension; E87.6 Hypokalemia; G43.A0 Cyclical vomiting, in migraine, not intractable; F12.10 Cannabis abuse, uncomplicated; E05.80 Other thyrotoxicosis without thyrotoxic crisis or storm; E87.1 Hypo-osmolality and hyponatremia; E83.42 Hypomagnesemia; Z68.26 Body mass index [BMI] 26.0-26.9, adult; Z79.84 Long term (current) use of oral hypoglycemic drugs
CPT/HCPCS: 82962; 84439; J0780; J1364; J2060; J2270; J2405; J2765; J3475; J3480; J3490; J7030; Q0092

== ENCOUNTER 2018-05-23 14:28 | Emergency (ER) | payer MEDICAID ==
[~2018-05-23] VITALS: Ht 165.1 cm; Wt 72.6 kg
[~2018-05-23 14:28] MED LIST changes: +REG50I; +ZOF4
[2018-05-23 14:50] VITALS: Ht 165.1 cm; Wt 72.6 kg
[2018-05-23 15:40] LABS: PLATELET COUNT 413 x10^3mcL (130-400); RED CELL DISTRIBUTION WIDTH 14.4 % (11.5-14.5)
[2018-05-23 15:50] LABS: ALBUMIN 3.4 g/dL (3.4-5.0); ALKALINE PHOSPHATASE 82 U/L (46-116); ALT/SGPT 27 U/L (14-59); AST/SGOT 16 U/L (15-37); BILIRUBIN TOTAL 0.66 mg/dL (0.20-1.00); CALCIUM 9.1 mg/dL (8.5-10.1); CARBON DIOXIDE 26.6 mmol/L (21-32); CHLORIDE SERUM 97 mmol/L (98-107); CREATININE SERUM 0.7 mg/dL (0.6-1.0); GFR1 > 60 mL/min; GLUCOSE SERUM 138 mg/dL (74-106); LIPASE 99 IU/L (73-393); SODIUM SERUM 133 mmol/L (136-145); TOTAL PROTEIN, SERUM 7.4 g/dL (6.4-8.2)
[2018-05-23 17:51] VITALS: BP 141/74
== END 2018-05-23 17:51 | disposition home or self-care (01) ==
LOC: ED 14:28
PROVIDERS: Emergency Medicine
DX: E11.43 Type 2 diabetes mellitus with diabetic autonomic (poly)neuropathy (principal); K31.84 Gastroparesis; K29.70 Gastritis, unspecified, without bleeding; E87.6 Hypokalemia; I10 Essential (primary) hypertension; Z90.49 Acquired absence of other specified parts of digestive tract
CPT/HCPCS: J2765; J3490

== ENCOUNTER 2018-05-26 12:23 | Emergency (ER) | payer MEDICAID ==
[~2018-05-26] VITALS: Ht 165.1 cm; Wt 66.9 kg
[2018-05-26 12:33] VITALS: Ht 165.1 cm; Wt 66.9 kg
[2018-05-26 13:46] LABS: BASOPHIL % 1.4 % (0-2); RED CELL DISTRIBUTION WIDTH 14.3 % (11.5-14.5)
[2018-05-26 13:58] LABS: PLATELET COUNT 410 x10^3mcL (130-400)
[2018-05-26 14:22] LABS: CALCIUM 9.1 mg/dL (8.5-10.1); CARBON DIOXIDE 16.5 mmol/L (21-32); CHLORIDE SERUM 95 mmol/L (98-107); CREATININE SERUM 0.7 mg/dL (0.6-1.0); GFR1 > 60 mL/min; GLUCOSE SERUM 163 mg/dL (74-106); SODIUM SERUM 132 mmol/L (136-145)
[2018-05-26 14:26] LABS: ALKALINE PHOSPHATASE 77 U/L (46-116); ALT/SGPT 24 U/L (14-59); AST/SGOT 22 U/L (15-37); BILIRUBIN TOTAL 0.7 mg/dL (0.20-1.00); LIPASE 148 IU/L (73-393); TOTAL PROTEIN, SERUM 7.2 g/dL (6.4-8.2)
[2018-05-26 14:27] LABS: POTASSIUM SERUM 3.2 mmol/L (3.5-5.1)
[2018-05-26 15:38] VITALS: BP 130/76
== END 2018-05-26 15:38 | disposition home or self-care (01) ==
LOC: ED 12:23
PROVIDERS: Emergency Medicine
DX: E11.43 Type 2 diabetes mellitus with diabetic autonomic (poly)neuropathy (principal); K31.84 Gastroparesis; I10 Essential (primary) hypertension; Z90.49 Acquired absence of other specified parts of digestive tract
CPT/HCPCS: J2060; J2405; J7030

== ENCOUNTER 2018-05-29 05:45 | Inpatient (IN) | payer MEDICAID ==
[~2018-05-29] VITALS: Ht 165.1 cm; Wt 68.5 kg
[2018-05-29 05:47] VITALS: Ht 165.1 cm; Wt 68.5 kg
[2018-05-29 07:11] LABS: BASOPHIL % 1.4 % (0-2); RED CELL DISTRIBUTION WIDTH 14.4 % (11.5-14.5)
[2018-05-29 07:23] LABS: PLATELET COUNT 453 x10^3mcL (130-400)
[2018-05-29 07:26] LABS: ALKALINE PHOSPHATASE 70 U/L (46-116); ALT/SGPT 27 U/L (14-59); AST/SGOT 14 U/L (15-37); BILIRUBIN TOTAL 0.73 mg/dL (0.20-1.00); CALCIUM 9.1 mg/dL (8.5-10.1); CARBON DIOXIDE 22.2 mmol/L (21-32); CHLORIDE SERUM 92 mmol/L (98-107); CREATININE SERUM 0.9 mg/dL (0.6-1.0); GFR1 > 60 mL/min; GLUCOSE SERUM 189 mg/dL (74-106); SODIUM SERUM 135 mmol/L (136-145); TOTAL PROTEIN, SERUM 7.2 g/dL (6.4-8.2)
[2018-05-29 07:27] LABS: ALBUMIN 3.2 g/dL (3.4-5.0); POTASSIUM SERUM 2.3 mmol/L (3.5-5.1)
[2018-05-29 13:32] VITALS: BP 126/65
[2018-05-29 18:50] VITALS: BP 168/100
[2018-05-29 21:04] VITALS: BP 160/103
[2018-05-29 23:41] VITALS: BP 151/99
[2018-05-30 05:11] VITALS: BP 141/96
[2018-05-30 06:19] LABS: BASOPHIL % 0.6 % (0-2); PLATELET COUNT 371 x10^3mcL (130-400); RED CELL DISTRIBUTION WIDTH 14.4 % (11.5-14.5)
[2018-05-30 06:36] LABS: CALCIUM 8.4 mg/dL (8.5-10.1); CARBON DIOXIDE 25.6 mmol/L (21-32); CHLORIDE SERUM 97 mmol/L (98-107); CREATININE SERUM 0.7 mg/dL (0.6-1.0); GFR1 > 60 mL/min; GLUCOSE SERUM 125 mg/dL (74-106); SODIUM SERUM 136 mmol/L (136-145)
[2018-05-30 06:41] LABS: POTASSIUM SERUM 2.3 mmol/L (3.5-5.1)
[2018-05-30 07:10] VITALS: BP 154/103
[2018-05-30 14:00] VITALS: BP 146/87
[2018-05-30 18:34] VITALS: BP 161/100
[2018-05-30 20:45] VITALS: BP 162/91
[2018-05-31 05:27] VITALS: BP 159/10; BP 159/101
[2018-05-31 07:36] LABS: BASOPHIL % 0.8 % (0-2); PLATELET COUNT 354 x10^3mcL (130-400); RED CELL DISTRIBUTION WIDTH 14.4 % (11.5-14.5)
[2018-05-31 07:43] LABS: CALCIUM 8.3 mg/dL (8.5-10.1); CARBON DIOXIDE 28.8 mmol/L (21-32); CHLORIDE SERUM 98 mmol/L (98-107); CREATININE SERUM 0.6 mg/dL (0.6-1.0); GFR1 > 60 mL/min; GLUCOSE SERUM 172 mg/dL (74-106); SODIUM SERUM 134 mmol/L (136-145)
[2018-05-31 08:17] LABS: POTASSIUM SERUM 2.4 mmol/L (3.5-5.1)
[2018-05-31 10:09] VITALS: BP 135/91
[2018-05-31 13:34] VITALS: BP 166/108
[2018-05-31 17:27] VITALS: BP 138/91
[2018-05-31 20:35] VITALS: BP 144/95
[2018-06-01 05:07] VITALS: BP 138/90
[2018-06-01 06:55] LABS: CALCIUM 8.3 mg/dL (8.5-10.1); CARBON DIOXIDE 27.9 mmol/L (21-32); CHLORIDE SERUM 102 mmol/L (98-107); CREATININE SERUM 0.5 mg/dL (0.6-1.0); GFR1 > 60 mL/min; GLUCOSE SERUM 126 mg/dL (74-106); SODIUM SERUM 139 mmol/L (136-145)
[2018-06-01 06:58] LABS: BASOPHIL % 1.1 % (0-2); PLATELET COUNT 328 x10^3mcL (130-400)
[2018-06-01 07:02] LABS: RED CELL DISTRIBUTION WIDTH 14.7 % (11.5-14.5)
[2018-06-01 07:12] LABS: POTASSIUM SERUM 2.5 mmol/L (3.5-5.1)
[2018-06-01 09:00] VITALS: BP 182/110
[2018-06-01 12:35] VITALS: BP 136/91
[2018-06-01 17:26] VITALS: BP 133/69
[2018-06-01 19:20] VITALS: BP 139/95
[2018-06-01 21:38] VITALS: BP 135/93
[2018-06-02 05:42] VITALS: BP 125/75
[2018-06-02 06:51] LABS: BASOPHIL % 0.9 % (0-2); PLATELET COUNT 304 x10^3mcL (130-400)
[2018-06-02 07:03] LABS: CALCIUM 8.3 mg/dL (8.5-10.1); CARBON DIOXIDE 26.9 mmol/L (21-32); CHLORIDE SERUM 104 mmol/L (98-107); CREATININE SERUM 0.6 mg/dL (0.6-1.0); GFR1 > 60 mL/min; POTASSIUM SERUM 3.5 mmol/L (3.5-5.1); SODIUM SERUM 139 mmol/L (136-145)
[2018-06-02 07:47] LABS: GLUCOSE SERUM 146 mg/dL (74-106)
[2018-06-02 08:03] LABS: RED CELL DISTRIBUTION WIDTH 14.7 % (11.5-14.5)
[2018-06-02 08:22] VITALS: BP 130/78
[2018-06-02 12:24] VITALS: BP 130/91
[2018-06-02 16:39] VITALS: BP 112/76
[2018-06-02 19:15] VITALS: BP 146/96
[2018-06-03 06:42] VITALS: BP 133/77
[2018-06-03 07:02] LABS: BASOPHIL % 0.6 % (0-2); PLATELET COUNT 294 x10^3mcL (130-400)
[2018-06-03 07:26] LABS: CALCIUM 8.1 mg/dL (8.5-10.1); CARBON DIOXIDE 29.1 mmol/L (21-32); CHLORIDE SERUM 104 mmol/L (98-107); CREATININE SERUM 0.7 mg/dL (0.6-1.0); GFR1 > 60 mL/min; GLUCOSE SERUM 122 mg/dL (74-106); POTASSIUM SERUM 3.8 mmol/L (3.5-5.1); SODIUM SERUM 135 mmol/L (136-145)
[2018-06-03 07:50] LABS: RED CELL DISTRIBUTION WIDTH 14.9 % (11.5-14.5)
[2018-06-03] MEDS ORDERED: ELA25 PO (08:44)
[2018-06-03 10:19] VITALS: BP 133/77
== END 2018-06-03 11:45 | disposition home or self-care (01) | DRG 48 ==
LOC: ED 05:45 → DU 08:43
PROVIDERS: Emergency Medicine; Internal Medicine Gastroenterology; ADMIT Family Medicine
PROC: 0DB78ZX Excision of Stomach, Pylorus, Via Natural or Artificial Opening Endoscopic, Diagnostic (ICD-10-PCS; principal; 2018-06-01 14:30)
DX: E11.43 Type 2 diabetes mellitus with diabetic autonomic (poly)neuropathy (principal); K31.84 Gastroparesis; E87.6 Hypokalemia; F32.9 Major depressive disorder, single episode, unspecified; F41.1 Generalized anxiety disorder; E86.0 Dehydration; I10 Essential (primary) hypertension; Z91.14 Patient's other noncompliance with medication regimen; Z79.84 Long term (current) use of oral hypoglycemic drugs
CPT/HCPCS: 43235; 82962; C9113; J1200; J1885; J2250; J2270; J2310; J2405; J2550; J2765; J3010; J3480; J3490; J7030; Q0092; Q9967

== ENCOUNTER 2018-06-08 02:50 | Emergency (ER) | payer MEDICAID ==
[~2018-06-08] VITALS: Ht 165.1 cm; Wt 66.7 kg
[~2018-06-08 02:50] MED LIST changes: +ELA25 PO
[2018-06-08 03:07] VITALS: Ht 165.1 cm; Wt 66.7 kg
[2018-06-08 04:32] LABS: BASOPHIL % 0.3 % (0-2); PLATELET COUNT 420 x10^3mcL (130-400); RED CELL DISTRIBUTION WIDTH 14.4 % (11.5-14.5)
[2018-06-08 04:44] LABS: ALBUMIN 3.4 g/dL (3.4-5.0); ALKALINE PHOSPHATASE 88 U/L (46-116); ALT/SGPT 35 U/L (14-59); AST/SGOT 19 U/L (15-37); BILIRUBIN TOTAL 0.61 mg/dL (0.20-1.00); CALCIUM 9.3 mg/dL (8.5-10.1); CARBON DIOXIDE 21.9 mmol/L (21-32); CHLORIDE SERUM 98 mmol/L (98-107); GFR1 > 60 mL/min; GLUCOSE SERUM 269 mg/dL (74-106); LIPASE 71 IU/L (73-393); POTASSIUM SERUM 3.4 mmol/L (3.5-5.1); SODIUM SERUM 136 mmol/L (136-145); TOTAL PROTEIN, SERUM 7.8 g/dL (6.4-8.2)
[2018-06-08 05:27] VITALS: BP 161/80
[2018-06-09] MEDS ORDERED: NOR5 PO (06:03)
[2018-06-09] MEDS ORDERED: ZESTRIL20 MG PO (06:03)
== END 2018-06-08 05:27 | disposition home or self-care (01) ==
LOC: ED 02:50
PROVIDERS: Emergency Medicine
DX: K31.84 Gastroparesis (principal); E11.43 Type 2 diabetes mellitus with diabetic autonomic (poly)neuropathy; I10 Essential (primary) hypertension
CPT/HCPCS: C9113; J1200; J2060; J2765; J7030

== ENCOUNTER 2018-06-09 03:18 | Inpatient (IN) | payer MEDICAID ==
[~2018-06-09] VITALS: Ht 165.1 cm; Wt 68.5 kg
[2018-06-09 03:22] VITALS: Ht 165.1 cm; Wt 68.5 kg
--- NOTE | 2018-06-09 03:40 | NUR ---
PT HERE FOR C/O VOMITING AND ABDOMINAL PAIN X 2 DAYS. PT WAS HERE YESTERDAY AND DISCHARGED WITH RELIEF OF SXS BUT WENT HOME AND BEGAN TO VOMIT AND HAVE PAIN AGAIN. PT STATES SHE WAS RECENTLY DIAGNOSED WTIH GASTROPORESIS. PT IS CONNECTED TO CARDIAC MONITORS AND TACHY AT 118. PT HAS HX OF HTN AND TAKES MEDICATION FOR THAT. PT HAS EQUAL AND UNLABORED CHEST RISE. PT IS CURRENTLY NAUSEOUS AND VOMITED APPROX 12 TIMES TODAY. NO OTHER DISTRESS NOTED AT THIS TIME. PT CONNECTED TO CARDIAC AND PLETH OX. BOYFRIEND AT BEDSIDE
--- NOTE | 2018-06-09 03:56 | NUR ---
LAB AT BEDSIDE
--- NOTE | 2018-06-09 03:56 | NUR ---
PEDRO RN AT BEDSIDE FOR ATTEMPTED IV START
--- NOTE | 2018-06-09 03:57 | NUR ---
PT STATES SHE HAS GASTROPORESIS. PT WAS DIAGNOSED WITH THIS APPROX 1 MONTH AGO PT STATES SHE TAKES HOME MEDICATIONS BUT DOES NOT KNOW WHAT THEY ARE OR HAVE THE LIST WITH HER.
--- NOTE | 2018-06-09 04:15 | NUR ---
PT STATES THERE IS NO POSSIBILITY OF . PT STATES THAT SHE RECIEVED MEDICATIONS YESTERDAY AND IS UNABLE TO PROVIDE URINE AT THIS TIME. PT IS AWARE OF AND ACCEPT RISKS OF TAKING MEDICATIONS PRIOR TO TEST
[2018-06-09 04:23] LABS: BASOPHIL % 0.6 % (0-2); PLATELET COUNT 410 x10^3mcL (130-400); RED CELL DISTRIBUTION WIDTH 14.7 % (11.5-14.5)
[2018-06-09 04:48] LABS: ALKALINE PHOSPHATASE 80 U/L (46-116); ALT/SGPT 27 U/L (14-59); AST/SGOT 16 U/L (15-37); BILIRUBIN TOTAL 0.6 mg/dL (0.20-1.00); CARBON DIOXIDE 21.7 mmol/L (21-32); CHLORIDE SERUM 99 mmol/L (98-107); CREATININE SERUM 0.7 mg/dL (0.6-1.0); GFR1 > 60 mL/min; GLUCOSE SERUM 163 mg/dL (74-106); LIPASE 75 IU/L (73-393); SODIUM SERUM 137 mmol/L (136-145)
[2018-06-09 04:49] LABS: POTASSIUM SERUM 2.9 mmol/L (3.5-5.1)
[2018-06-09 05:37] LABS: MAGNESIUM 1.1 mg/dL (1.8-2.4); PHOSPHOROUS 3.5 mg/dL (2.5-4.9)
[2018-06-09 05:38] LABS: T3 TOTAL 1.47 ng/mL
[2018-06-09 05:39] LABS: CHOLESTEROL/HDL RATIO 4.1
[2018-06-09 05:44] LABS: FREE T4 1.45 ng/dL (0.76-1.46); FREE THYROXINE INDEX 3.2 ug/dL (1.4-4.5); T4(THYROXINE) 8.1 ug/dL (4.7-13.3)
--- NOTE | 2018-06-09 05:45 | NUR ---
REC'D PT FROM ED VIA GURNEY ACCOMPANIED BY EMT. PT AMB FROM [facility] TO BED BY SELF WITH STEADY GAIT. VOMITED YELLOW INTO EMESIS BAG PRIOR TO AMBULATING. ADM WITH COMPLAINTS OF N/V X2 DAYS. AAOX4, SPEECH CLEAR, FOLLOWS COMMANDS. MED SURG, NO TELE. NO EDEMA NOTED. REPORTS EPIGASTRIC PAIN /10, SHARP. NO PAIN MEDS ORDERED AT THIS TIME. ALSO C/O NAUSEA, ZOFRAN AND REGLAN GIVEN IN ED. NOT YET DUE. VOIDING FREELY. AMBULATORY. IV TO RAC INTACT. POTASSIUM FROM ED CONTINUED @ 50 ML/HR. MORE THAN HALF LEFT. NS INFUSING @ 100 ML/HR. ORIENTED TO DEVICES AND SURROUNDINGS. CALL LIGHT WITHIN REACH, BED AT LOWEST POSITION. BP 164/102, MAP 120, HR 94. REPORTS HAS NOT BEEN ABLE TO TAKE PO BP MEDS D/T N/V. DR. RODRIGUEZ MADE AWARE OF PT'S PAIN AND ELEVATED BP. REQUESTED IV MEDS.
[2018-06-09] MEDS ORDERED: ZESTRIL20 MG PO (06:03)
[2018-06-09] MEDS ORDERED: NOR5 PO (06:03)
[2018-06-09 07:03] VITALS: BP 164/102
--- NOTE | 2018-06-09 07:50 | NUR ---
ASSUMED CARE OF PATIENT. ALERT AND ORIENTED X4. S1 S2 SOUNDS NOTED. PULSES PALPABLE BILATERALLY, NO ADVERSE EFFECTS OF HEPARIN NOTED. LUNG SOUNDS CLEAR TO ROOM AIR BILATERALLY, NO ADVENTITIOUS BREATH SOUNDS. BOWEL SOUNDS PRESENT IN ALL 4 QUADRANTS. VOIDING WITH NO ISSUE. GENERALIZED WEAKNESS, AMBULATES INDEPENDENTLY WITH STEADY GAIT. SKIN CLEAN DRY INTACT. NO COMPLAINT SOF PAIN THIS AM. IV ON RFA PATENT AND INFUSING 125 ML NS. BED LOCKED AND IN LOWEST POSITION. NONSKID SOCKS IN PLACE. CALL LIGHT WITHIN REACH.
--- NOTE | 2018-06-09 08:41 | NUR ---
COMPLAINING OF MILD NAUSEA. PRN ZOFRAN PROVIDED. TOLERATED PO MEDS WELL.
[2018-06-09 08:52] VITALS: BP 153/103
--- NOTE | 2018-06-09 10:00 | NUR ---
NO COMPLAINTS OF N/V OR ABDOMINAL PAIN. SEEN RESTING IN BED.
--- NOTE | 2018-06-09 11:20 | NUR ---
PRN REGLAN PROVIDED FOR NAUSEA/VOMITING. EPISODE OF EMESIS S/P ADMINISTRATION, 200ML OF CLEAR LIQUID VOMITUS NOTED.
--- NOTE | 2018-06-09 12:09 | NUR ---
PATIENT STATING SHE IS TOO NAUSEOUS TO SWALLOW SCHEDULED MEDICATIONS. PRN PHERGAN PROVIDED.
--- NOTE | 2018-06-09 12:39 | NUR ---
PATIENT CONTINUES TO REPORT NAUSEA S/P PHENERGAN ADMINISTRATION. REPORTING ABDOMINAL PAIN WELL. STATES SHE WONT BE ABLE TO SWALLOW PILLS. NOTIFIED DR. ALCANTARA OF NAUSEA AND INABILITY TO SWALLOW PO.
--- NOTE | 2018-06-09 13:48 | NUR ---
REFUSING PO MEDS DUE TO FEAR OF THROWING UP. PAGED.
[2018-06-09 13:53] VITALS: BP 135/84
--- NOTE | 2018-06-09 14:04 | NUR ---
IVP PROTONIX PROVIDED, INFUSED OVER 2 MINUTES.
[2018-06-09 14:21] LABS: AMPHETAMINE QUAL UR NONE DETECTED (See below)
[2018-06-09 14:29] LABS: microscopic required? YES; urine erythrocyte NEGATIVE (NEGATIVE)
--- NOTE | 2018-06-09 14:46 | NUR ---
PATIENT SEEN SLEEPING WITH UNLABORED AND EVEN RESPIRATIONS. NO NEW ISSUES.
--- NOTE | 2018-06-09 16:54 | NUR ---
PATIENT CONTINUES TO COMPLAIN OF NAUSEA AND ABDOMINAL PAIN. PHENERGAN PRN PROVIDED. NOTIFIED.
[2018-06-09 17:47] VITALS: BP 165/97
--- NOTE | 2018-06-09 17:52 | NUR ---
PATIENT SEEN RESTING IN BED WITH UNLABORED AND EQUAL RESPIRATIONS.
--- NOTE | 2018-06-09 18:18 | NUR ---
PATIENT AWOKE FROM [facility] REPORTING DECREASED NAUSEA AND WAS ABLE TO EAT 50% OF DINNER. NO NEW ISSUES.
--- NOTE | 2018-06-09 18:47 | NUR ---
PATIENT SEEN RESTING IN BED WITH UNLABORED AND EVEN RESPIRATIONS. WILL ENDORSE CARE TO ONCOMING RN.
--- NOTE | 2018-06-09 19:30 | NUR ---
REC'D PT FROM DAY NURSE. PT RESTING IN BED. APPEARS TO BE SLEEPING. AWAKENS WITH VERBAL STIMULI. AAOX4, SPEECH CLEAR, FOLLOWS COMMANDS. MED SURG, NO TELE. DENIES CP, DIZZINESS, OR PALPITATIONS. NO EDEMA NOTED. DENIES RESP DISTRESS OR SOB. BREATHING EVEN/UNLABORED ON RA. ABD SOFT/ROUND. DENIES ABD PAIN, TENDERNESS, OR N/V AT THIS TIME. LAST BM YESTERDAY. VOIDING FREELY. AMBULATORY. SKIN INTACT. IV TO RAC PATENT AND INFUSING, SITE WNL. CALL LIGHT WITHIN REACH, BED AT LOWEST POSITION. WILL CONTINUE TO MONITOR.
--- NOTE | 2018-06-09 20:16 | NUR ---
SPOKE TO DR. RAMSEY. MADE AWARE OF PT'S FLUCTUATING BP, CURRENT 149/99, NO AM LABS, AND REQUEST FOR IV PAIN MEDS PRN. RESIDENT STATED TO MONITOR BP FOR NOW AND WILL ENTER AM LABS.
[2018-06-09 20:23] VITALS: BP 149/99
--- NOTE | 2018-06-10 00:52 | NUR ---
PT C/O NAUSEA AFTER EATING A SANDWICH. REGLAN GIVEN PER ORDER. ALSO REPORTS ANXIETY AND REQUESTING MEDICATIONS. STATES SHE TAKES SOMETHING BUT UNSURE OF THE NAME. "IT SHOULD BE THERE SOMEWHERE" REFERRING TO EMAR. MED REC SHOWS PT TAKES ELAVIL. CONFIRMED WITH PT SHE TAKES ELAVIL FOR ANXIETY NEEDED. DR. RAMSEY PAGED.
--- NOTE | 2018-06-10 01:35 | NUR ---
BENADRYL GIVEN PER ORDER FOR COMPLAINTS OF ANXIETY. DENIES NAUSEA AT THIS TIME. WILL CONTINUE TO MONITOR.
--- NOTE | 2018-06-10 02:20 | NUR ---
PT C/O N/V. EMESIS OF ~50 ML. THORAZINE GIVEN PER ORDER. WILL CONTINUE TO MONITOR.
[2018-06-10 05:10] VITALS: BP 134/89
--- NOTE | 2018-06-10 06:09 | NUR ---
PT AWAKE AND RESTING IN BED. NO COMPLAINTS AT THIS TIME. DENIES ABD PAIN OR N/V. COMPAZINE EFFECTIVE IN CONTROLLING NAUSEA. NO SIGNIFICANT CHANGES DURING SHIFT. CALL LIGHT WITHIN REACH, BED AT LOWEST POSITION. WILL ENDORSE TO DAY NURSE.
[2018-06-10 06:18] LABS: BASOPHIL % 0.8 % (0-2); PLATELET COUNT 327 x10^3mcL (130-400)
[2018-06-10 06:36] LABS: CALCIUM 8.1 mg/dL (8.5-10.1); CARBON DIOXIDE 23.6 mmol/L (21-32); CHLORIDE SERUM 103 mmol/L (98-107); CREATININE SERUM 0.5 mg/dL (0.6-1.0); GFR1 > 60 mL/min; GLUCOSE SERUM 136 mg/dL (74-106); MAGNESIUM 1.7 mg/dL (1.8-2.4); POTASSIUM SERUM 3.3 mmol/L (3.5-5.1); SODIUM SERUM 136 mmol/L (136-145)
--- NOTE | 2018-06-10 07:41 | NUR ---
RECEIVED PATIENT FROM NIGHT NURSE. AWAKE, ALERT AND ORIENTED. NO C/O NAUSEA AT THIS TIME. IV INFUSING NS AT 100ML/HR.
[2018-06-10 08:45] LABS: RED CELL DISTRIBUTION WIDTH 14.8 % (11.5-14.5)
[2018-06-10 09:13] VITALS: BP 181/109
[2018-06-10 13:34] VITALS: BP 181/109
[2018-06-10] MEDS ORDERED: COMPAZINE10 M1 PO (14:30)
--- NOTE | 2018-06-10 15:16 | NUR ---
AT 0820 - PATIENT C/O NAUSEA. MEDICATED WITH COMPAZINE PER EMAR. ALSO C/O ABDOMINAL PAIN 11/22. AT 0830 - GIVEN TORADOL PER EMAR. PATIENT STIL TOO NAUSEATED TO TAKE PO MEDS INCLUDING LISINOPRIL AND AMLODIPINE. WILL ADMINISTER SOON ABLE. AT 0840 - SEEN BY DR HELLER. PLAN TO DC HOME LATER TODAY. AT 1015 - NAUSEA APPEARS TO HAVE RESOLVED AT THIS TIME. GIVEN MORNING MEDS SCHEDULED BUT PATIENT REFUSED PO KCL PILLS. SAYS SHE CANNOT TAKE KCL LIQUID. CALLED AND SPOKE WITH DR ALCANTARA. SHE WILL ORDER K-RIDER. COMMENCED 1 GRAM MG RIDER FOR MG LEVEL OF 1.7 AT 1200 - MG RIDER COMPLETED. NOW COMMENCED 20 MEQ K-RIDER FOR K+ OF 3.3 AT 1430 - K-RIDER COMPLETED. PATIENT HAS BEEN SLEEPING WITH NO FURTHER VOMITING OR C/O NAUSEA. TOLERATING PO LIQUIDS AND HAD SMALL AMOUNT OF FOOD FOR LUNCH. AT 1530 - NOW C/O NAUSEA. MEDICATED WITH COMPAZINE PER EMAR.
[2018-06-10 15:24] VITALS: BP 143/87
[2018-06-10 15:25] VITALS: BP 143/87
--- NOTE | 2018-06-10 17:30 | NUR ---
PATIENT SLEPT AFTER RECEIVING COMPAZINE. NOW READY TO DC HOME. IV CATHETER HAS BEEN REMOVED. PRINTED DISCHARGE INSTRUCTIONS GIVEN AND EXPLAINED TO PATIENT. PRESCRIPTION PROVIDED. DISCHARGED HOME WITH FRIEND. ESCORTED AMBULATORY TO HOSPITAL FRONT ENTRANCE.
== END 2018-06-10 17:28 | disposition home or self-care (01) | DRG 48 ==
LOC: ED 03:18 → MU 04:58
PROVIDERS: Emergency Medicine; ADMIT Internal Medicine
DX: E11.43 Type 2 diabetes mellitus with diabetic autonomic (poly)neuropathy (principal); E11.65 Type 2 diabetes mellitus with hyperglycemia; K31.84 Gastroparesis; I10 Essential (primary) hypertension; E87.6 Hypokalemia; E83.42 Hypomagnesemia; E78.5 Hyperlipidemia, unspecified; Z90.49 Acquired absence of other specified parts of digestive tract
CPT/HCPCS: 82962; 84439; C9113; J0780; J1200; J1885; J2270; J2405; J2550; J2765; J3475; J3480; J7030; J7050

== ENCOUNTER 2018-06-11 17:53 | Emergency (ER) | payer MEDICAID ==
[~2018-06-11] VITALS: Ht 165.1 cm; Wt 68.0 kg
[~2018-06-11 17:53] MED LIST changes: +COMPAZINE10 M1 PO
[2018-06-11 18:12] VITALS: Ht 165.1 cm; Wt 68.0 kg
[2018-06-11 22:13] LABS: BASOPHIL % 1.1 % (0-2)
[2018-06-11 22:16] LABS: PLATELET COUNT 410 x10^3mcL (130-400); RED CELL DISTRIBUTION WIDTH 14.8 % (11.5-14.5)
[2018-06-11 22:20] LABS: CALCIUM 9.1 mg/dL (8.5-10.1); CARBON DIOXIDE 22.4 mmol/L (21-32); CHLORIDE SERUM 98 mmol/L (98-107); CREATININE SERUM 0.7 mg/dL (0.6-1.0); GFR1 > 60 mL/min; GLUCOSE SERUM 138 mg/dL (74-106); SODIUM SERUM 136 mmol/L (136-145)
[2018-06-11 22:25] LABS: ALBUMIN 3.1 g/dL (3.4-5.0); ALKALINE PHOSPHATASE 74 U/L (46-116); ALT/SGPT 22 U/L (14-59); AST/SGOT 15 U/L (15-37); BILIRUBIN TOTAL 0.6 mg/dL (0.20-1.00); LIPASE 72 IU/L (73-393); TOTAL PROTEIN, SERUM 7.1 g/dL (6.4-8.2)
[2018-06-11 22:56] VITALS: BP 163/120
== END 2018-06-12 04:15 | disposition home or self-care (01) ==
LOC: ED 17:53
PROVIDERS: Emergency Medicine
DX: E11.43 Type 2 diabetes mellitus with diabetic autonomic (poly)neuropathy (principal); K31.84 Gastroparesis; E87.6 Hypokalemia; I10 Essential (primary) hypertension; Z90.49 Acquired absence of other specified parts of digestive tract
CPT/HCPCS: J2270; J2405

== ENCOUNTER 2019-01-25 19:53 | Emergency (ER) | payer OTHER ==
[~2019-01-25] VITALS: Ht 165.1 cm; Wt 83.9 kg
[2019-01-25 20:08] VITALS: Ht 165.1 cm; Wt 83.9 kg
[2019-01-25 22:08] LABS: BASOPHIL % 0.2 % (0-2); PLATELET COUNT 316 x10^3mcL (130-400)
[2019-01-25 22:15] LABS: RED CELL DISTRIBUTION WIDTH 15.9 % (11.5-14.5)
[2019-01-25 22:33] LABS: CALCIUM 8.7 mg/dL (8.5-10.1); CARBON DIOXIDE 20.7 mmol/L (21-32); CREATININE SERUM 1.4 mg/dL (0.6-1.0); POTASSIUM SERUM 3.4 mmol/L (3.5-5.1)
[2019-01-25 22:37] LABS: BILIRUBIN TOTAL 0.9 mg/dL (0.20-1.00); TOTAL PROTEIN, SERUM 7.9 g/dL (6.4-8.2)
[2019-01-26 01:42] VITALS: BP 157/93
== END 2019-01-26 01:42 | disposition home or self-care (01) ==
LOC: ED 19:53
PROVIDERS: Specialist
DX: E11.43 Type 2 diabetes mellitus with diabetic autonomic (poly)neuropathy (principal); K31.84 Gastroparesis; I10 Essential (primary) hypertension; Z98.890 Other specified postprocedural states
CPT/HCPCS: 82962; J1885; J2270; J2405; J2765; J3490; J7030

== ENCOUNTER 2019-01-26 23:30 | Emergency (ER) | payer OTHER ==
[~2019-01-26] VITALS: Ht 162.6 cm; Wt 81.6 kg
[2019-01-27 02:25] VITALS: BP 180/89
[2019-01-27 02:45] LABS: BASOPHIL % 0.1 % (0-2); PLATELET COUNT 331 x10^3mcL (130-400)
[2019-01-27 02:51] LABS: RED CELL DISTRIBUTION WIDTH 15.2 % (11.5-14.5)
[2019-01-27 03:20] LABS: CARBON DIOXIDE 24.4 mmol/L (21-32); CHLORIDE SERUM 98 mmol/L (98-107); GFR1 > 60 mL/min; GLUCOSE SERUM 184 mg/dL (74-106); POTASSIUM SERUM 3.1 mmol/L (3.5-5.1); SODIUM SERUM 134 mmol/L (136-145)
[2019-01-27 03:26] LABS: ALKALINE PHOSPHATASE 87 U/L (46-116); ALT/SGPT 65 U/L (14-59); AST/SGOT 42 U/L (15-37); BILIRUBIN TOTAL 0.8 mg/dL (0.20-1.00); LIPASE 57 IU/L (73-393); TOTAL PROTEIN, SERUM 7.2 g/dL (6.4-8.2)
[2019-01-27 03:28] LABS: ALBUMIN 2.8 g/dL (3.4-5.0)
== END 2019-01-27 02:25 | disposition home or self-care (01) ==
LOC: ED 23:30
PROVIDERS: Emergency Medicine
DX: E11.43 Type 2 diabetes mellitus with diabetic autonomic (poly)neuropathy (principal); K31.84 Gastroparesis
CPT/HCPCS: 36415; J2765; J3010

== ENCOUNTER 2019-07-07 19:18 | Emergency (ER) | payer OTHER ==
[~2019-07-07] VITALS: Ht 162.6 cm; Wt 90.7 kg
[2019-07-07 19:21] VITALS: Ht 162.6 cm; Wt 90.7 kg
[2019-07-07 19:45] VITALS: BP 164/88
[2019-07-07 19:49] LABS: UA SPECIFIC GRAVITY 1.025 (1.005-1.035); microscopic required? YES; urine erythrocyte 2+ (NEGATIVE)
== END 2019-07-07 19:45 | disposition home or self-care (01) ==
LOC: ED 19:18
PROVIDERS: Emergency Medicine
DX: N39.0 Urinary tract infection, site not specified (principal); I10 Essential (primary) hypertension; E11.9 Type 2 diabetes mellitus without complications

== ENCOUNTER 2019-07-18 07:42 | Emergency (ER) | payer OTHER ==
[~2019-07-18] VITALS: Ht 162.6 cm; Wt 83.9 kg
[2019-07-18 07:52] VITALS: Ht 162.6 cm; Wt 83.9 kg
[2019-07-18 09:01] LABS: BASOPHIL % 0.5 % (0-2); PLATELET COUNT 360 x10^3mcL (130-400); RED CELL DISTRIBUTION WIDTH 15.3 % (11.5-14.5)
[2019-07-18 09:04] LABS: CALCIUM 8.9 mg/dL (8.5-10.1); CARBON DIOXIDE 19.9 mmol/L (21-32); CREATININE SERUM 1.2 mg/dL (0.6-1.0); POTASSIUM SERUM 3.7 mmol/L (3.5-5.1)
[2019-07-18 09:09] LABS: BILIRUBIN TOTAL 0.6 mg/dL (0.20-1.00); TOTAL PROTEIN, SERUM 7.8 g/dL (6.4-8.2)
[2019-07-18 09:10] LABS: ALBUMIN 3.2 g/dL (3.4-5.0)
[2019-07-18 10:06] LABS: UA SPECIFIC GRAVITY 1.025 (1.005-1.035); microscopic required? YES; urine erythrocyte 2+ (NEGATIVE)
[2019-07-18 10:27] LABS: AMPHETAMINE QUAL UR NONE DETECTED (See below)
[2019-07-18 11:57] VITALS: BP 198/108
== END 2019-07-18 11:57 | disposition home or self-care (01) ==
LOC: ED 07:42
PROVIDERS: Emergency Medicine
DX: R11.15 Cyclical vomiting syndrome unrelated to migraine (principal); R10.817 Generalized abdominal tenderness; I10 Essential (primary) hypertension; E11.9 Type 2 diabetes mellitus without complications; Z90.49 Acquired absence of other specified parts of digestive tract
CPT/HCPCS: J1200; J2270; J2765; J7030

== ENCOUNTER 2019-07-31 11:14 | Inpatient (IN) | payer OTHER ==
[~2019-07-31] VITALS: Ht 162.6 cm; Wt 82.2 kg
[2019-07-31 11:35] VITALS: Ht 162.6 cm; Wt 82.2 kg
[2019-07-31 12:39] LABS: BASOPHIL % 0.5 % (0-2)
[2019-07-31 12:40] LABS: PLATELET COUNT 425 x10^3mcL (130-400); RED CELL DISTRIBUTION WIDTH 14.6 % (11.5-14.5)
[2019-07-31 12:56] LABS: BILIRUBIN TOTAL 0.6 mg/dL (0.20-1.00); CALCIUM 8.9 mg/dL (8.5-10.1); CREATININE SERUM 1.3 mg/dL (0.6-1.0); TOTAL PROTEIN, SERUM 7.5 g/dL (6.4-8.2)
[2019-07-31 12:58] LABS: ALBUMIN 3.1 g/dL (3.4-5.0)
[2019-07-31 12:59] LABS: POTASSIUM SERUM 2.6 mmol/L (3.5-5.1)
[2019-07-31 16:27] LABS: FREE T4 1.49 ng/dL (0.76-1.46); T4(THYROXINE) 8.6 ug/dL (4.7-13.3)
[2019-07-31 16:30] LABS: T3 TOTAL 0.91 ng/mL
[2019-07-31 16:39] LABS: CHOLESTEROL/HDL RATIO 4.3; MAGNESIUM 1.2 mg/dL (1.8-2.4); PHOSPHOROUS 1.6 mg/dL (2.5-4.9)
[2019-07-31 17:41] VITALS: BP 226/120
[2019-07-31 19:48] VITALS: BP 157/89
[2019-08-01 06:11] VITALS: BP 190/95
[2019-08-01 06:25] VITALS: BP 167/96
[2019-08-01 07:19] LABS: BASOPHIL % 0.2 % (0-2); PLATELET COUNT 359 x10^3mcL (130-400)
[2019-08-01 07:27] LABS: RED CELL DISTRIBUTION WIDTH 15.3 % (11.5-14.5)
[2019-08-01 07:29] LABS: CARBON DIOXIDE 21.1 mmol/L (21-32); CREATININE SERUM 1.3 mg/dL (0.6-1.0); PHOSPHOROUS 2.7 mg/dL (2.5-4.9)
[2019-08-01 08:08] VITALS: BP 151/83
[2019-08-01 11:51] VITALS: BP 158/86
[2019-08-01 15:53] VITALS: BP 136/72
[2019-08-01 19:07] LABS: CALCIUM 8.2 mg/dL (8.5-10.1); CARBON DIOXIDE 27.3 mmol/L (21-32); CREATININE SERUM 1.2 mg/dL (0.6-1.0); MAGNESIUM 2.4 mg/dL (1.8-2.4); PHOSPHOROUS 4.1 mg/dL (2.5-4.9); POTASSIUM SERUM 3.7 mmol/L (3.5-5.1)
[2019-08-01 19:23] VITALS: BP 137/80
[2019-08-02] VITALS (7 sets, daily range): BP systolic 123–176; BP diastolic 59–99
[2019-08-03 05:02] VITALS: BP 155/86
[2019-08-03 07:42] LABS: BASOPHIL % 1.2 % (0-2); PLATELET COUNT 316 x10^3mcL (130-400)
[2019-08-03 07:55] LABS: CALCIUM 7.8 mg/dL (8.5-10.1); CARBON DIOXIDE 24.4 mmol/L (21-32); CHLORIDE SERUM 100 mmol/L (98-107); CREATININE SERUM 0.9 mg/dL (0.6-1.0); GFR1 > 60 mL/min; GLUCOSE SERUM 103 mg/dL (74-106); MAGNESIUM 1.6 mg/dL (1.8-2.4); PHOSPHOROUS 3.1 mg/dL (2.5-4.9); POTASSIUM SERUM 3.3 mmol/L (3.5-5.1); SODIUM SERUM 131 mmol/L (136-145)
[2019-08-03 08:06] LABS: RED CELL DISTRIBUTION WIDTH 14.9 % (11.5-14.5)
[2019-08-03 08:44] VITALS: BP 173/100
[2019-08-03 11:59] VITALS: BP 172/88
[2019-08-03 15:37] LABS: AMPHETAMINE QUAL UR NONE DETECTED (See below)
[2019-08-03 16:28] VITALS: BP 168/87
[2019-08-03 20:57] VITALS: BP 145/75
== END 2019-08-03 23:33 | disposition left against medical advice (07) | DRG 48 ==
LOC: ED 11:14 → DU 15:11 → MU 08-02 21:48
PROVIDERS: Emergency Medicine; ADMIT Student in an Organized Health Care Education/Training Program; ATTEND Student in an Organized Health Care Education/Training Program
PROC: 06HM33Z Insertion of Infusion Device into Right Femoral Vein, Percutaneous Approach (ICD-10-PCS; principal; 2019-07-31)
DX: E11.43 Type 2 diabetes mellitus with diabetic autonomic (poly)neuropathy (principal); E83.42 Hypomagnesemia; K31.84 Gastroparesis; F12.90 Cannabis use, unspecified, uncomplicated; E78.5 Hyperlipidemia, unspecified; I16.1 Hypertensive emergency; E87.6 Hypokalemia; Z79.899 Other long term (current) drug therapy; Z90.49 Acquired absence of other specified parts of digestive tract; Z53.29 Procedure and treatment not carried out because of patient's decision for other reasons
CPT/HCPCS: 82962; 83880; 84439; G0378; J0360; J1170; J1630; J1885; J2270; J2405; J2765; J3010; J3475; J3480; J7030

== ENCOUNTER 2019-08-26 16:11 | Inpatient (IN) | payer OTHER ==
[~2019-08-26] VITALS: Ht 162.6 cm; Wt 72.6 kg
[2019-08-26 16:20] VITALS: Ht 162.6 cm; Wt 72.6 kg
[2019-08-26 19:03] LABS: BASOPHIL % 0.5 % (0-2); PLATELET COUNT 369 x10^3mcL (130-400); RED CELL DISTRIBUTION WIDTH 14.7 % (11.5-14.5)
[2019-08-26 19:34] LABS: ALBUMIN 2.6 g/dL (3.4-5.0); ALKALINE PHOSPHATASE 66 U/L (46-116); ALT/SGPT 29 U/L (14-59); AST/SGOT 25 U/L (15-37); BILIRUBIN DIRECT 0.13 mg/dL (0.0-0.2); BILIRUBIN TOTAL 0.68 mg/dL (0.20-1.00); CALCIUM 7.9 mg/dL (8.5-10.1); CARBON DIOXIDE 20.9 mmol/L (21-32); CHLORIDE SERUM 101 mmol/L (98-107); CREATININE SERUM 0.9 mg/dL (0.6-1.0); GFR1 > 60 mL/min; GLUCOSE SERUM 142 mg/dL (74-106); LIPASE 82 IU/L (73-393); SODIUM SERUM 139 mmol/L (136-145); TOTAL PROTEIN, SERUM 6.3 g/dL (6.4-8.2)
[2019-08-26 19:35] LABS: POTASSIUM SERUM 2.4 mmol/L (3.5-5.1)
[2019-08-26 22:55] LABS: microscopic required? YES; urine erythrocyte 1+ (NEGATIVE)
[2019-08-26 23:22] LABS: PHOSPHOROUS 2.1 mg/dL (2.5-4.9)
[2019-08-27 00:19] LABS: MAGNESIUM 1.6 mg/dL (1.8-2.4)
[2019-08-27 00:40] LABS: POTASSIUM SERUM 2.9 mmol/L (3.5-5.1)
[2019-08-27 02:45] VITALS: BP 201/110
[2019-08-27 03:53] VITALS: BP 133/81
[2019-08-27 08:05] LABS: BASOPHIL % 0.5 % (0-2); PLATELET COUNT 345 x10^3mcL (130-400)
[2019-08-27 08:13] LABS: CALCIUM 7.4 mg/dL (8.5-10.1); CARBON DIOXIDE 25.6 mmol/L (21-32); CHLORIDE SERUM 100 mmol/L (98-107); CREATININE SERUM 0.9 mg/dL (0.6-1.0); GFR1 > 60 mL/min; GLUCOSE SERUM 119 mg/dL (74-106); MAGNESIUM 2.5 mg/dL (1.8-2.4); SODIUM SERUM 137 mmol/L (136-145)
[2019-08-27 08:24] LABS: POTASSIUM SERUM 2.6 mmol/L (3.5-5.1)
[2019-08-27 08:48] LABS: RED CELL DISTRIBUTION WIDTH 14.6 % (11.5-14.5)
[2019-08-27 09:22] VITALS: BP 161/95
[2019-08-27 10:45] VITALS: BP 145/89
[2019-08-27 16:23] LABS: AMPHETAMINE QUAL UR NONE DETECTED (See below)
[2019-08-27 17:30] VITALS: BP 155/86
[2019-08-27 21:33] VITALS: BP 150/88
[2019-08-28 06:03] VITALS: BP 136/75
[2019-08-28 07:55] VITALS: BP 143/79
[2019-08-28 07:56] LABS: BASOPHIL % 0.6 % (0-2); PLATELET COUNT 347 x10^3mcL (130-400)
[2019-08-28 08:06] LABS: RED CELL DISTRIBUTION WIDTH 14.6 % (11.5-14.5)
[2019-08-28 08:44] LABS: CALCIUM 7.9 mg/dL (8.5-10.1); CARBON DIOXIDE 24.7 mmol/L (21-32); CHLORIDE SERUM 101 mmol/L (98-107); CREATININE SERUM 0.9 mg/dL (0.6-1.0); GFR1 > 60 mL/min; GLUCOSE SERUM 84 mg/dL (74-106); PHOSPHOROUS 3.7 mg/dL (2.5-4.9); SODIUM SERUM 136 mmol/L (136-145)
[2019-08-28 08:57] LABS: POTASSIUM SERUM 2.6 mmol/L (3.5-5.1)
[2019-08-28 14:02] VITALS: BP 158/106
[2019-08-28 16:32] VITALS: BP 140/85
[2019-08-28 20:49] VITALS: BP 156/81
[2019-08-29 05:24] VITALS: BP 149/96
[2019-08-29 09:22] VITALS: BP 130/77
[2019-08-29 12:08] VITALS: BP 128/76
[2019-08-29] MEDS ORDERED: REGLAN10 M1 PO ×2 (14:15→15:23)
[2019-08-29] MEDS ORDERED: COMPAZINE10 M1 PO ×2 (14:15→15:23)
[2019-08-29] MEDS ORDERED: PEPCID AC10 M2 PO (14:15)
[2019-08-29] MEDS ORDERED: PEPCID AC20 M2 PO (15:23)
[2019-08-29 16:53] VITALS: BP 137/77
== END 2019-08-29 18:00 | disposition home or self-care (01) | DRG 48 ==
LOC: ED 16:11 → DU 20:42
PROVIDERS: Student in an Organized Health Care Education/Training Program; ADMIT Family Medicine; ATTEND Family Medicine
DX: E11.43 Type 2 diabetes mellitus with diabetic autonomic (poly)neuropathy (principal); E43 Unspecified severe protein-calorie malnutrition; K31.84 Gastroparesis; E87.6 Hypokalemia; F41.9 Anxiety disorder, unspecified; I16.1 Hypertensive emergency; E83.42 Hypomagnesemia; K59.00 Constipation, unspecified; Z90.49 Acquired absence of other specified parts of digestive tract; Z91.14 Patient's other noncompliance with medication regimen; Z68.27 Body mass index [BMI] 27.0-27.9, adult
CPT/HCPCS: 82962; G0378; J0360; J1630; J1815; J2060; J2270; J2405; J2765; J3010; J3475; J3480; J3490; J7030; Q0092; Q0162

== ENCOUNTER 2019-09-04 15:00 | Inpatient (IN) | payer OTHER ==
[~2019-09-04] VITALS: Ht 162.6 cm; Wt 76.2 kg
[~2019-09-04 15:00] MED LIST changes: +PEPCID AC10 M2 PO; +PEPCID AC20 M2 PO; +REGLAN10 M1 PO
[2019-09-04 15:06] VITALS: Ht 162.6 cm; Wt 76.2 kg
--- NOTE | 2019-09-04 15:47 | NUR ---
PATIENT AAOX4 PRESENTS BACK TO THE ED WITH ABDOMINAL PAIN, N/V X 1 MONTH. PATIENT WAS HERE A FEW DAYS FOR THE SAME THING BUT SYMPTOMS HAVENT RESOLVED. PATIENT HAS HX OF DM AND GASTROPARESIS. PT DENIES TAKING ANY MEDICATIONS FOR DM. BS 176 DURING ASSESSMENT. BREATHING E/U, SKIN WARM DRY AND INTACT. PT C/O PAIN 11/22. PATIENT PLACED ON MONITORS FOR FURTHER OBSERVATION. WILL CONTINUE TO MONITOR.
--- NOTE | 2019-09-04 15:49 | NUR ---
REQUESTED URINE SAMPLE, PATIENT UNABLE TO PROVIDE BUT SAYS SHE WILL. PT DENIES ANY CHANCE OF DURING PAIN MEDICATION ADMINISTRATION.
[2019-09-04 16:13] LABS: BASOPHIL % 1.1 % (0-2); PLATELET COUNT 417 x10^3mcL (130-400); RED CELL DISTRIBUTION WIDTH 14.8 % (11.5-14.5)
--- NOTE | 2019-09-04 16:13 | NUR ---
MEDICATED PER MD ORDERS- SEE EMR
[2019-09-04 16:27] LABS: ALKALINE PHOSPHATASE 67 U/L (46-116); ALT/SGPT 58 U/L (14-59); AST/SGOT 31 U/L (15-37); BILIRUBIN TOTAL 0.7 mg/dL (0.20-1.00); CALCIUM 8.5 mg/dL (8.5-10.1); CARBON DIOXIDE 18.6 mmol/L (21-32); CHLORIDE SERUM 100 mmol/L (98-107); CREATININE SERUM 0.9 mg/dL (0.6-1.0); GFR1 > 60 mL/min; GLUCOSE SERUM 168 mg/dL (74-106); LIPASE 66 IU/L (73-393); SODIUM SERUM 136 mmol/L (136-145); TOTAL PROTEIN, SERUM 6.5 g/dL (6.4-8.2)
[2019-09-04 16:29] LABS: ALBUMIN 2.7 g/dL (3.4-5.0); POTASSIUM SERUM 2.9 mmol/L (3.5-5.1)
--- NOTE | 2019-09-04 16:43 | NUR ---
MEDICATED PER MD ORDERS- SEE EMR
[2019-09-04 17:28] LABS: MAGNESIUM 1.5 mg/dL (1.8-2.4); PHOSPHOROUS 1.9 mg/dL (2.5-4.9)
[2019-09-04 17:30] LABS: CHOLESTEROL/HDL RATIO 3.6
[2019-09-04 17:38] LABS: FREE T4 1.62 ng/dL (0.76-1.46); FREE THYROXINE INDEX 3.2 ug/dL (1.4-4.5); T4(THYROXINE) 7.8 ug/dL (4.7-13.3)
--- NOTE | 2019-09-04 18:11 | NUR ---
MEDICATED PER MD ORDERS- SEE EMR
--- NOTE | 2019-09-04 18:12 | NUR ---
PATIENT HAVING MULTIPLE BOUTS OF VOMITING. SITTING IN UPRIGHT POSITION. BP IS ELEVATED AND DR CAMARILLO WAS MADE AWARE. MEDICATED PER ORDERS- SEE EMR
[2019-09-04 18:22] LABS: microscopic required? YES; urine erythrocyte TRACE (NEGATIVE)
--- NOTE | 2019-09-04 18:42 | NUR ---
PROVIDED REPORT TO NILES NOEL FOR CONTINUED CARE OF PATIENT
--- NOTE | 2019-09-04 18:46 | NUR ---
RECEIVED REPORT FROM FORM SETTER HELPER. ALL QUESTIONS AND CONCERNS ADDRESSED. ALL NEEDS MET AT THIS TIME. WILL CONTINUE TO MONITOR PT.
--- NOTE | 2019-09-04 18:54 | NUR ---
RECEIVED PT VIA GURNEY FROM E/D, ACCOMPANIED BY RN AND TRANSPORTER. PT A/A/O X 4, ANXIOUS, AMB FEARS R/T HOSPITAL STAY. ON TELE # 20, ST, HR 115, DENIES CHEST PAIN OR DISCOMFORT AT THIS TIME. LUNGS CTAB, CHEST RISING EVENLY, SHALLOW BREATHING, R/A, 100%, RR 22, SOB ON EXERTION. ABD SOFT, ROUND, TENDERNESS ON PALPATION AND C/O INTERMITTENT ABD CRAMPING 10/10, EXACERBATED BY MOVEMENT AND WALKING, RELIEVED BY MEDICATIONS ONLY, HYPERACTIVE BOWEL SOUNDS AND TYMPANY UPON PERCUSSION X 4 QUADS, LAST BM WAS "DAYS". VOIDS FREELY, DENIES DYSURIA. AMBULATORY @ BASELINE, HAS MILD GENERALIZED WEAKNESS, FALL RISK PROTOCOL IN PLACE. IV SITE RFA 20G, CDI. ORIENTED PT TO ROOM, BED CONTROLS, CALL LIGHT SYSTEM. SIDE RAILS UP X 2, BED IN LOW POSITION. WILL ENDORSE TO NOC SHIFT.
[2019-09-04 19:02] LABS: AMPHETAMINE QUAL UR NONE DETECTED (See below)
--- NOTE | 2019-09-04 19:10 | NUR ---
REPORTED BP 210/[address] MORA. AWAITING ORDERS. ALL QUESTIONS AND CONCERNS ADDRESSED. ALL NEEDS MET AT THIS TIME. WILL CONTINUE TO MONITOR PT.
--- NOTE | 2019-09-04 19:15 | NUR ---
REPORT GIVEN TO KATHRYN CAGE. ALL QUESTIONS AND CONCERNS ADDRESSED. ALL CARES ENDORSED.
[2019-09-04 19:59] LABS: CALCIUM 7.8 mg/dL (8.5-10.1); CARBON DIOXIDE 23.1 mmol/L (21-32); CHLORIDE SERUM 103 mmol/L (98-107); CREATININE SERUM 0.9 mg/dL (0.6-1.0); GFR1 > 60 mL/min; GLUCOSE SERUM 121 mg/dL (74-106); POTASSIUM SERUM 3.2 mmol/L (3.5-5.1); SODIUM SERUM 138 mmol/L (136-145)
[2019-09-04 20:09] VITALS: BP 195/108
[2019-09-04 20:30] VITALS: BP 201/103
--- NOTE | 2019-09-04 22:18 | NUR ---
PATIENT STILL VOMITING LIGHT GREEN VOMITUS OFF AND ON,AND ALSO STILL QUIET ANXIOUS, WITH WO=078/93, OW=674. ZOFRAN GIVEN, HYDRALIZE IVP GIVEN, HALDOL IVP GIVEN PER ORDERED AND PER PARAMETER GIVEN. WILL MONITOR .
[2019-09-04 22:22] VITALS: BP 172/93
[2019-09-04 23:12] VITALS: BP 140/86
--- NOTE | 2019-09-05 | NUR ---
PATIENT RESTING QUIETLY AND COMFORTABLY THIS TIME, VOMITING HAD STOPPED, BP WITHIN NORMAL LIMTS AND ABDOMINAL PAIN BEARABLE, RELAXED. IV SITE NO SIGN OF INFILTRATION, HANGED SECOND BAG OF K-RIDER 20 MEQ REGULATED.WILL CONTINUE TO MONITOR.
[2019-09-05 05:35] VITALS: BP 141/85
--- NOTE | 2019-09-05 06:25 | NUR ---
PATIENT SLEPT OFF AND ON D/T EPISODES OF NAUSEA AND VOMITING. LASTEST BP THIS AM 141/85, STILL WITH COMPLAINT OF ABDOMINAL PAIN, WAS MEDICATED X2 WITH TORADOL WITH RELIEF, ZOFRAN AND REGLAN IVP WAS ADMINISTERED PER ORDER. HEPLOCK TO RT FOREARM PATENT AND INTACT, DRESSING SECURED. PATIENT AMBULATED TO THE BATHROOM WITH STEADY GAIT STATED. SAFETY/FALL PRECAUTIONS MAINTAINED. WILL ENDORSE CONTINUITY OF CARE TO INCOMING NURSE.
--- NOTE | 2019-09-05 07:24 | NUR ---
BEDSIDE HANDS OFF REPORT AND INTRODUCTION PERFORMED WITH INCOMING NURSE ALEXANDRIA CAGE.
--- NOTE | 2019-09-05 07:32 | NUR ---
RECEIVED PATIENT FROM PM NURSE, ALERT AND ORIENTED X 4, NO C/O PAIN OR DISCOMFORT AT THIS TIME, LUNG SOUNDS CLEAR ON RA, GENERALIZED WEAKNESS, IV IN RFA PATENT, ON TELEMETRY, DENIES CHEST PAIN, BOWEL SOUNDS ACTIVE, SKIN INTACT, PEDAL PULSE STRONG AND EQUAL, NO EDEMA NOTED, CONTINENT OF BOWEL AND BLADDER, PATIENT CALM AND COOPERATIVE
[2019-09-05 08:00] VITALS: BP 167/94
[2019-09-05 09:25] LABS: CALCIUM 8.4 mg/dL (8.5-10.1); CARBON DIOXIDE 22.2 mmol/L (21-32); CHLORIDE SERUM 102 mmol/L (98-107); CREATININE SERUM 0.9 mg/dL (0.6-1.0); GFR1 > 60 mL/min; GLUCOSE SERUM 105 mg/dL (74-106); MAGNESIUM 1.9 mg/dL (1.8-2.4); PHOSPHOROUS 3.6 mg/dL (2.5-4.9); POTASSIUM SERUM 3.5 mmol/L (3.5-5.1); SODIUM SERUM 136 mmol/L (136-145)
[2019-09-05 10:35] LABS: BASOPHIL % 1.9 % (0-2)
[2019-09-05 10:37] LABS: PLATELET COUNT 434 x10^3mcL (130-400)
--- NOTE | 2019-09-05 11:30 | NUR ---
BLOODSUGAR 94, NO INSULIN COVERAGE NEEDED AT THIS TIME
[2019-09-05 12:52] VITALS: BP 153/87
[2019-09-05] MEDS ORDERED: ZESTRIL10 MG PO (15:09)
[2019-09-05] MEDS ORDERED: MSIR15 PO ×4 (15:25→16:11)
--- NOTE | 2019-09-05 16:00 | NUR ---
PATIENTS BLOOD PRESSURE 176,96 HDRALAZINE ADMINISTERED PER EMAR, WILL CONTINUE TO MONITOR
[2019-09-05] MEDS ORDERED: MS CONTIN15 M1 PO (16:13)
--- NOTE | 2019-09-05 16:30 | NUR ---
PATIENTS BLOOD PRESSURE 122/66, HR 76, PATIENT WILL BE DISCHARGED HOME
[2019-09-05 16:50] VITALS: BP 165/89
--- NOTE | 2019-09-05 17:00 | NUR ---
PATIENTS BLOOD SUGAR 136, NO INSULIN COVERAGE NEEDED AT THIS TIME
[2019-09-05 17:42] VITALS: BP 122/77
--- NOTE | 2019-09-05 18:40 | NUR ---
PATIENT RESTING COMFORTABLY IN BED ATTEMPTED TO HAVE PATIENT SIGN DISCHARGE PAPER WORK, PATIENT REFUSED AT THIS TIME, VIOLETA ENDORSE DISCHARGE TO PM NURSE
--- NOTE | 2019-09-05 18:56 | NUR ---
PATIENT D/C HOME, ABLE TO AMBULATE INDEPENDENTLY, IV DC WITH CATHETER INATACT, PROVIDED D/C INSTRUCTION AND TEACHING, PATIENT VERBALIZED UNDERSTANDING
== END 2019-09-05 19:02 | disposition home or self-care (01) | DRG 48 ==
LOC: ED 15:00 → DU 16:42
PROVIDERS: Emergency Medicine; ADMIT Internal Medicine; ATTEND Internal Medicine
DX: E11.43 Type 2 diabetes mellitus with diabetic autonomic (poly)neuropathy (principal); E43 Unspecified severe protein-calorie malnutrition; K31.84 Gastroparesis; G89.29 Other chronic pain; E86.0 Dehydration; E87.6 Hypokalemia; I10 Essential (primary) hypertension; I16.1 Hypertensive emergency; Z91.14 Patient's other noncompliance with medication regimen; Z90.49 Acquired absence of other specified parts of digestive tract; Z79.899 Other long term (current) drug therapy
CPT/HCPCS: 36600; 82962; 83880; 84439; G0378; J0360; J1630; J1885; J2060; J2270; J2405; J2765; J3475; J3480; J7050; J7120; Q0162

== ENCOUNTER 2019-11-02 21:20 | Inpatient (IN) | payer OTHER ==
[~2019-11-02] VITALS: Ht 162.6 cm; Wt 65.3 kg
[~2019-11-02 21:20] MED LIST changes: +MS CONTIN15 M1 PO; +MSIR15 PO; +ZESTRIL10 MG PO
[2019-11-02 21:29] VITALS: Ht 162.6 cm; Wt 65.3 kg
[2019-11-02 22:22] LABS: BASOPHIL % 0.2 % (0-2); PLATELET COUNT 275 x10^3mcL (130-400)
[2019-11-02 22:45] LABS: BILIRUBIN TOTAL 0.5 mg/dL (0.20-1.00); CALCIUM 9.5 mg/dL (8.5-10.1); CARBON DIOXIDE 15.9 mmol/L (21-32); CREATININE SERUM 1.3 mg/dL (0.6-1.0); TOTAL PROTEIN, SERUM 7.6 g/dL (6.4-8.2)
[2019-11-02 22:49] LABS: POTASSIUM SERUM 2.8 mmol/L (3.5-5.1)
[2019-11-02 22:58] LABS: RED CELL DISTRIBUTION WIDTH 15.1 % (11.5-14.5)
[2019-11-03 03:54] LABS: microscopic required? YES; urine erythrocyte TRACE (NEGATIVE)
[2019-11-03 04:23] VITALS: BP 144/70
[2019-11-03 04:45] LABS: AMPHETAMINE QUAL UR NONE DETECTED (See below)
[2019-11-03 05:41] LABS: MAGNESIUM 1.3 mg/dL (1.8-2.4); PHOSPHOROUS 1.3 mg/dL (2.5-4.9)
[2019-11-03 07:24] LABS: PLATELET COUNT 373 x10^3mcL (130-400)
[2019-11-03 07:31] LABS: BASOPHIL % 0 % (0-2); RED CELL DISTRIBUTION WIDTH 15.6 % (11.5-14.5)
[2019-11-03 07:46] LABS: CALCIUM 9.4 mg/dL (8.5-10.1); CREATININE SERUM 1.4 mg/dL (0.6-1.0); MAGNESIUM 1.4 mg/dL (1.8-2.4); PHOSPHOROUS 2.8 mg/dL (2.5-4.9); POTASSIUM SERUM 3.1 mmol/L (3.5-5.1)
[2019-11-03 08:13] VITALS: BP 128/91
[2019-11-03 08:20] LABS: CHOLESTEROL/HDL RATIO 4.8
[2019-11-03 12:48] VITALS: BP 138/85
[2019-11-03 16:44] VITALS: BP 126/78
[2019-11-03 20:15] VITALS: BP 102/66
[2019-11-04 05:28] VITALS: BP 115/66
[2019-11-04 08:23] LABS: BASOPHIL % 0.4 % (0-2); PLATELET COUNT 230 x10^3mcL (130-400)
[2019-11-04 08:30] LABS: RED CELL DISTRIBUTION WIDTH 15.5 % (11.5-14.5)
[2019-11-04 08:35] LABS: CALCIUM 8.6 mg/dL (8.5-10.1); CARBON DIOXIDE 22.7 mmol/L (21-32); CHLORIDE SERUM 103 mmol/L (98-107); CREATININE SERUM 0.9 mg/dL (0.6-1.0); GFR1 > 60 mL/min; GLUCOSE SERUM 123 mg/dL (74-106); POTASSIUM SERUM 3.6 mmol/L (3.5-5.1); SODIUM SERUM 134 mmol/L (136-145)
[2019-11-04 09:23] VITALS: BP 132/95
[2019-11-04 13:19] VITALS: BP 133/75
[2019-11-04 16:50] VITALS: BP 129/58
[2019-11-04 21:18] VITALS: BP 151/85
[2019-11-05 05:11] VITALS: BP 186/97
[2019-11-05 06:30] VITALS: BP 156/66
[2019-11-05 09:02] VITALS: BP 152/87
[2019-11-05 17:15] VITALS: BP 166/88
[2019-11-05 20:54] VITALS: BP 150/71
[2019-11-06 05:04] VITALS: BP 157/77
[2019-11-06 06:51] LABS: BASOPHIL % 1.1 % (0-2); PLATELET COUNT 274 x10^3mcL (130-400)
[2019-11-06 07:03] LABS: RED CELL DISTRIBUTION WIDTH 14.7 % (11.5-14.5)
[2019-11-06 07:42] LABS: CALCIUM 8.3 mg/dL (8.5-10.1); CARBON DIOXIDE 20.2 mmol/L (21-32); CHLORIDE SERUM 104 mmol/L (98-107); CREATININE SERUM 0.6 mg/dL (0.6-1.0); GFR1 > 60 mL/min; GLUCOSE SERUM 97 mg/dL (74-106); SODIUM SERUM 136 mmol/L (136-145)
[2019-11-06 07:56] VITALS: BP 144/85
[2019-11-06] MEDS ORDERED: LIPI20 PO (08:57)
[2019-11-06] MEDS ORDERED: ZES20 PO (08:58)
[2019-11-06] MEDS ORDERED: NOR5 PO (08:58)
[2019-11-06] MEDS ORDERED: TEST STRIPS1 EACH MC (08:58)
[2019-11-06 09:30] VITALS: BP 144/85
== END 2019-11-06 12:44 | disposition home or self-care (01) | DRG 48 ==
LOC: ED 21:20 → MU 11-03 02:43 → DU 11-03 02:43 → MU 11-05 06:19
PROVIDERS: Emergency Medicine; ADMIT Family Medicine; ATTEND Family Medicine
DX: E11.43 Type 2 diabetes mellitus with diabetic autonomic (poly)neuropathy (principal); N17.9 Acute kidney failure, unspecified; E87.8 Other disorders of electrolyte and fluid balance, not elsewhere classified; E11.65 Type 2 diabetes mellitus with hyperglycemia; E87.1 Hypo-osmolality and hyponatremia; K31.84 Gastroparesis; I10 Essential (primary) hypertension; E87.6 Hypokalemia; F12.90 Cannabis use, unspecified, uncomplicated; I16.0 Hypertensive urgency; E86.0 Dehydration; E78.5 Hyperlipidemia, unspecified; Z79.4 Long term (current) use of insulin; Z79.84 Long term (current) use of oral hypoglycemic drugs; Z90.49 Acquired absence of other specified parts of digestive tract; Z71.51 Drug abuse counseling and surveillance of drug abuser
CPT/HCPCS: G0378; J1364; J2270; J2405; J2765; J3010; J3475; J3480; J3490; J7030

== ENCOUNTER 2019-11-19 20:27 | Inpatient (IN) | payer OTHER ==
[~2019-11-19] VITALS: Ht 162.6 cm; Wt 69.9 kg
[~2019-11-19 20:27] MED LIST changes: +LIPI20 PO; +TEST STRIPS1 EACH MC; +ZES20 PO
[2019-11-19 21:12] LABS: BASOPHIL % 1.5 % (0-2); PLATELET COUNT 425 x10^3mcL (130-400); RED CELL DISTRIBUTION WIDTH 14.6 % (11.5-14.5)
[2019-11-19 21:30] LABS: ALKALINE PHOSPHATASE 84 U/L (46-116); ALT/SGPT 17 U/L (14-59); AST/SGOT 24 U/L (15-37); BILIRUBIN TOTAL 0.58 mg/dL (0.20-1.00); CALCIUM 8.4 mg/dL (8.5-10.1); CARBON DIOXIDE 21.9 mmol/L (21-32); CHLORIDE SERUM 99 mmol/L (98-107); CREATININE SERUM 0.9 mg/dL (0.6-1.0); GFR1 > 60 mL/min; GLUCOSE SERUM 120 mg/dL (74-106); SODIUM SERUM 133 mmol/L (136-145); TOTAL PROTEIN, SERUM 6.6 g/dL (6.4-8.2); TRIGLYCERIDES 180 mg/dL (<150)
[2019-11-19 21:46] LABS: ALBUMIN 2.8 g/dL (3.4-5.0); CHOLESTEROL 206 mg/dL (<200); CHOLESTEROL/HDL RATIO 3.2; HDL CHOLESTEROL 65 mg/dL (40-60); POTASSIUM SERUM 2.6 mmol/L (3.5-5.1)
--- NOTE | 2019-11-19 22:22 | NUR ---
FIRST ENCOUNTER WITH PT. WHO WAS BIB AMBULANCE C/O ABDOMINAL PAIN, N/V
--- NOTE | 2019-11-19 22:37 | NUR ---
PT. GIVEN MEDICATION STATED THE PAIN IS LESS 5/10 AT THIS TIME.
[2019-11-19 23:18] LABS: microscopic required? YES; urine erythrocyte TRACE (NEGATIVE)
[2019-11-20] VITALS (7 sets, daily range): BP systolic 154–215; BP diastolic 74–118
--- NOTE | 2019-11-20 01:34 | NUR ---
RECEIVED PT FROM ER, PT ADMIT FOR INTRACTABLE VOMITING. HYPOKALEMIA. PT IS A/O X4, VERBAL RESPONSIVE. LUNG SOUND CLEAR BILATERAL, NO COUGH, NO SOB. PT IS ON TELE 2, STA, DENY ANY CHEST PAIN OR DISCOMFORT. BOWEL SOUND PRESENT ALL 4 QUADRANTS, PT C/O ABD PAIN 10/10, THERE IS G TUBE IN PLACE, PT STATE G TUBE IS FOR DRAINAGE. PEDAL PULSE PRESENT BOTH FEET, NO EDEMA, IV AT LEFT WRIST, NO LEAKING, NO INFILTRATION. ALL ADLS ASSIST, ALL NEED MET, CALL LIGHT IN REACH, WILL CONTINUE TO MONITOR.
--- NOTE | 2019-11-20 01:44 | NUR ---
MORPHINE GIVEN FOR ABD PAIN 11/22.
--- NOTE | 2019-11-20 04:00 | NUR ---
ZOFRAN GIVEN FOR NAUSEA/VOMITING.
--- NOTE | 2019-11-20 05:46 | NUR ---
MORPHINE GIVEN FOR SHARP PAIN TO ABD 10/10.
--- NOTE | 2019-11-20 06:59 | NUR ---
PT RESTED IN INTERVALS DURING SHIFT. NO SOB ON ROOM AIR. MORPHINE GIVEN X2 FOR ABD PAIN AND ZOFRAN X1 FOR N/V. PT REFUSED LAB DRAW THIS MORNING. NORVASC AND LISINOPRIL GIVEN EARLY FOR HIGH BP. SAFETY MEASURES MAINTAINED. BED IN LOWEST POSITION. SIDE RAILS UP X2. CALL LIGHT WITHIN REACH. WILL ENDORSE CONTINUITY OF CARE TO DAY SHIFT RN.
--- NOTE | 2019-11-20 07:25 | NUR ---
RECEIVED BEDSIDE REPORT FROM NIGHT RN. PT AWAKE IN BED. RR EVEN AND UNLABORED ON RA. STANDARD PRECAUTIONS. TELE#2. IV IN R HAND LEAKING. K STOPPED. WILL START NEW IV. PT CO NV. PT CURRENTLY NPO. ALL OTHER NEEDS MEET AT THIS TIME. CALL LIGHT WITHIN REACH. WILL CONTINUE TO MONITOR.
--- NOTE | 2019-11-20 13:42 | NUR ---
PT CO ABD PAIN 11/22. PT VOMIITING CLEAR LIQUID. PT REFUSED PO BP MED AND PO TYLENOL. MADE AWARE. PT CO NOT BEING ABLE TO BREATH. NC PLACED ON PT. PT REFUSED TO USE IT. O2 SAT AT 100% ON RA.
--- NOTE | 2019-11-20 17:50 | NUR ---
PT MEDICATED WITH DILAUDID AND ZOFRAN FOR ABD PAIN AND NV.PT RESTING IN BED COMFORTABLY WITH EYES CLOSED. EASILY AROUSABLE. PT REFUSES ALL PO MEDS. PT STATED SHE DIDNT WANT BP MEDICATION. ALL NEEDS MEET AT THIS TIME. WILL CONTINUE TO MONITOR.
--- NOTE | 2019-11-20 19:23 | NUR ---
ENDORSED CARE TO NIGHT RN. PT ASLEEP IN BED COMFORTABLY IN NO ACUTE DISTRESS.
--- NOTE | 2019-11-21 05:20 | NUR ---
PATIENT RESTING COMFORTABLY AT THIS TIME BUT NOTED TO HAVE 10/10 PAIN W NAUSE VOMITING. PATIENT IS AWAKE ALERT ORIETNED ABLE TO AMBULATE TO THE BATHROOM WITH MINIMAL ASSISTANCE. PATIENTS SBP WAS WITHING 150'S AND HR 120'S PER RECORDED BASELINE. WILL ENOORSE TO AM SHIFT. TO MONITOR PAIN AND BLOOD PRESSURE. CALL LIGHT PLACED WITHIN REACH.
[2019-11-21 08:12] VITALS: BP 203/123
--- NOTE | 2019-11-21 09:45 | NUR ---
DAY SHIFT Patient received awake and alert x4, able to make needs known. Complaining of severe pain. Dilaudid IV was administered x1, tolerating well. Patient has a right lower extremity IV that is patent and currently intact. No edema noted or abrasions. Patient has a g tube with dressing intact. She states g tube is to remove drainage but currently there is no drainage. Patient has unsteady gait due to pain, was educated on calling for help when ambulating to the restroom or when getting up. Call light is close within reach. Patient stated she would call when she would like pain medication instead of getting up and ambulating to the hallway. Will monitor closely.
[2019-11-21 12:00] VITALS: BP 215/131
--- NOTE | 2019-11-21 19:54 | NUR ---
RECEIVED REPORT FROM DAY SHIFT RN. PT APPEARS TO BE SLEEPING. IVF INFUSING AT 80CC/HR. BED IS IN LOW POSITION AND CALL LIGHT WITHIN REACH. WILL ASSESS PT AND MONITOR THROUGHOUT THE NIGHT.
[2019-11-21 20:18] VITALS: BP 143/83
--- NOTE | 2019-11-21 21:00 | NUR ---
PT IS AWAKE AND ANGRY WALKING DOWN THE [address] WAY BECAUSE SHE WANTS PAIN MEDS. PT DOES NOT HAVE IV ACCESS AND SHE IS A HARD STICK. WILL ASK ANOTHER RN TRY PUTTING IN IV ACCESS. PT REFUSES TO CHECK BLOOD SUGAR AT THIS TIME.
--- NOTE | 2019-11-21 21:56 | NUR ---
SPOKE WITH DR GAGNON AND NOTIFIED THAT PT WANTS PAIN MEDS BUT DOES NOT HAVE IV ACCESS. NEW ORDERS FOR TORADOL IM AND CBC AND BMP RECEIVED.
--- NOTE | 2019-11-21 22:54 | NUR ---
LAB TRIED TO DRAW BLOOD FOR CBC AND BMP BUT WAS UNSUCCESSFUL. THEY WILL SEND ANOTHER PERSON TO COME AND TRY TO DRAW BLOOD.
--- NOTE | 2019-11-22 00:24 | NUR ---
PATIENT VERY UPSET BECAUSE SHE IS IN PAIN. SHE STATES THAT THE TORADOL IM DID NOT EVEN HELP HER SHE WANTS HER DILAUDID. PT DOES NOT HAVE IV ACCESS AND SHE STATES THAT "PLEASE SEND ALL THE NURSES TO COME AND TRY PUTTING IN IV" NEXT TORADOL DOSE IS DUE AT 0630.
[2019-11-22 02:11] LABS: BASOPHIL % 1.1 % (0-2); PLATELET COUNT 362 x10^3mcL (130-400); RED CELL DISTRIBUTION WIDTH 14.5 % (11.5-14.5)
[2019-11-22 02:13] LABS: CALCIUM 8.1 mg/dL (8.5-10.1); CARBON DIOXIDE 17.6 mmol/L (21-32); CHLORIDE SERUM 97 mmol/L (98-107); CREATININE SERUM 0.8 mg/dL (0.6-1.0); GFR1 > 60 mL/min; GLUCOSE SERUM 87 mg/dL (74-106); SODIUM SERUM 129 mmol/L (136-145)
[2019-11-22 04:51] VITALS: BP 147/84
--- NOTE | 2019-11-22 04:51 | NUR ---
PT NOW CURSING OUT AT STAFF BECAUSE NOBODY HAS GOTTEN AN IV ON HER AND SHE WANTS DILAUDID. SEVERAL NURSES TRIED INCLUDING CHARGE NURSE FROM ANOTHER UNIT. TO BE PAGED AND ASK IF DILAUDID CAN BE GIVEN IM. AWAITING CALL BACK FROM DR SNELL
--- NOTE | 2019-11-22 04:59 | NUR ---
DR GAGNON CALLED BACK AND TOLD THAT PT WANTS MORE PAIN MEDS AND HOW SHE IS CURSING AT STAFF. NEW ORDER FOR DILAUDID PO RECEIVED.
--- NOTE | 2019-11-22 05:38 | NUR ---
PT STILL CURSING OUT AT STAFF. HOUSE SUP ON THE FLOOR AND MADE AWARE OF SITUATION. PHARMACY HAS NOT YET VERIFIED THE PO DILAUDID. PT ALSO REFUSED LAB DRAWS FOR THIS MORNING.
--- NOTE | 2019-11-22 06:47 | NUR ---
PT UNDERSTANDS THAT SHE IS LEFT WITH ONE DOSE OF TORADOL AND PO DILAUDID. SHE STATES THAT SHE WILL SPEAK WITH HER DOCTOR'S DURING THE DAY SO THEY CAN PUT A "CENTRAL LINE ON HER." WILL PASS REPORT TO INCOMING DAY SHIFT RN FOR CONTINUITY OF CARE
--- NOTE | 2019-11-22 07:15 | NUR ---
RECEIVED PATIENT FROM PM NURSE ALERT AND ORIENTED X 4, LUNG SOUNDS CLEAR, ON RA, GENERALIZED WEAKNESS, NO IV ACCESS AT THIS TIME, ON TELEMETRY, ST 118, BOWEL SOUNDS ACTIVE, SKIN INTACT, PEDAL PULSES MODERATE AND EQUAL, CONTINENT OF BLADDER, PATIENT ANXIOUS AND AGITATED, NOT COOPERATIVE TO CARE
--- NOTE | 2019-11-22 08:00 | NUR ---
PATIENT C/O 10/10 PAIN, ADMINISTERED PO DILAUDID PER EMAR, WILL REASSES PAIN LEVEL AGAIN NEEDED
[2019-11-22 08:19] VITALS: BP 153/88
--- NOTE | 2019-11-22 10:00 | NUR ---
NEW PIV STARTED IN LEFT WRIST, PATENT AND FLUSHING
--- NOTE | 2019-11-22 10:30 | NUR ---
PATIENT C/O /10 PAIN, ADMINISTERED IV DILAUDID PER EMAR, WILL REASSES PAIN LEVEL AGAIN NEEDED
[2019-11-22 12:17] VITALS: BP 168/117
--- NOTE | 2019-11-22 12:30 | NUR ---
PATIENT REFUSED BLOOD SUGAR AT THIS TIME
--- NOTE | 2019-11-22 16:15 | NUR ---
PATIENTS BP IS 160/90, WILL ADMINISTER PRN CLONODINE AND MONITOR
[2019-11-22 16:18] VITALS: BP 162/110
--- NOTE | 2019-11-22 16:27 | NUR ---
PATIENT C/O 10/10 IN ABDOMEN AND VOMITING, WILL ADMINISTER PRN DILAUDID AND ZOFRAN PER EMAR
--- NOTE | 2019-11-22 17:14 | NUR ---
PATIENT REFUSED BLOOD SUGAR CHECK AT THIS TIME
--- NOTE | 2019-11-22 18:26 | NUR ---
PATIENT RESTING COMFORTABLY IN BED, NO C/O PAIN OR DISCOMFORT AT THIS TIME, WILL ENDORSE CARE TO PM NURSE
[2019-11-22 21:51] VITALS: BP 229/133
--- NOTE | 2019-11-22 22:15 | NUR ---
ON CHANGE OF SHIFT PATIENT C/O ABDOMINAL PAIN AT SCALE OF 9/10 AND REQUESTED FOR PAIN MDS.ASSESSMENT DONE .AWAKE,ALERT AND ORIENTED.SKIN WARM AND DRY TO TOUCH.NST 120'S TELE #2.GTUBE DRAINING GREENISH OUTPUT.KEPT NPO FOR NOW .BLOOD PRESSURE ELEVATED 180/90 .MEDS GIVEN FOR PAIN AND B/P OREDERED WITH GOOD RELIEF.KEPT COMFORTABLE.
[2019-11-23 05:10] VITALS: BP 185/92
--- NOTE | 2019-11-23 07:27 | NUR ---
RECEIVED REPORT FROM A ALUMINUM POURER NURSE. PT IS ANN. RR NORMAL, TELE#2 SR 92. BED IN LOW POSITION, BED SIDE RAIL UP X2, CALL LIGHT WITHIN REACH.
[2019-11-23 08:03] VITALS: BP 194/124
--- NOTE | 2019-11-23 10:24 | NUR ---
SEEN BY DR WILSON, BUT PATIENT ASLEEP AT THE TIME.
--- NOTE | 2019-11-23 11:20 | NUR ---
PATIENT HAD REFUSED BLOOD DRAW THIS MORNING. DR WILSON HAS BEEN MADE AWARE OF THIS BY ME. SPOKE WITH PATIENT ABOUT IMPORTANCE OF COLLECTING BLOOD FOR MONITORING OF ELECTROLYTE LEVELS AND PATIENT AGREED TO HAVE BLOOD DRAWN BUT AFTER ONE UNSUCCESSFUL ATTEMT SHE REFUSED OTHER BLOOD DRAW. LAB WILL TRY LATER.
[2019-11-23 12:24] VITALS: BP 182/107
[2019-11-23 16:22] VITALS: BP 172/94
--- NOTE | 2019-11-23 16:28 | NUR ---
AFTER RECEIVING VERBAL PERMISSION FROM PATIENT, SPOKE WITH PATIENT'S BOYFRIEND NAVARRO AND UPDATED ON PATIENT CONDITION.
--- NOTE | 2019-11-23 16:55 | NUR ---
Follow up Nutrition Assessment: [address]B TEMO GOTTI 34F Dx: intractable vomiting, hypokalemia PMHx: HTN, diabetes, gastroparesis, h/o laparoscopic cholecystectomy in 03/2018 PSHx: Laparoscopic cholecystectomy and G-tube placement Labs: Na 129L, K 3.0L, BUN 6L, Trig 180H,(11/18: Mirela 206H, LDL 102H), H/H 10.5/31L. *no updated labs on 11/22, labs from 11/21 and 11/18 Meds: KCL, Adalat, Zestril, Reglan, NACL, Humulin, magnesium sulfate, Zofran, Tylenol, Dilaudid, catapres, K chloride, reglan Diet: NPO d/t intractable vomiting PO intake since admission: NPO Edema: none noted Last BM: 11/19 diarrhea, g tube for drainage Skin: intact, no open wound noted Vj: 23 Per H and P (11/18) Pt is a 34-year-old female with h/o diabetes in additional to diabetic gastroparesis, who presents with reports of abd pain, nausea, vomiting. She states she has had diabetic gastroparesis for "many years", she did undergo a G-tube placement approximately a month ago and supplements her diet with tube feeding (glucerna). She denies using any drugs or smoking marijuana. No reports of any hematemesis, melena or hematochezia. She was noted to have a potassium of 2.6 in the ED. Pt was admitted with dx: intractable nausea and vomiting secondary to diabetic gastroparesis, DM, hypertension, hypokalemia RD Note (11/20/2019) Pt was lying in bed during bedside visit. Pt refused to be a part of the assessment and don't want her bed scale to be checked. RD asked RN to check bed scale later, and it was 156.2 lbs. Per RN, pt was vomiting earlier but pt did not want antiemetic. Instead, pt only wanted pain medication. Pt only had been drinking water for hydration, and Pt had a loose BM today. RD note (11/23/2019) Pt was asleep at time of visit, obtained wt on bedscale: 161 lbs (73.2 kg), per pt's primary RN, pt vomited 2x today, pt hs a gastric Estimated Nutritional Needs Based on adjusted body weight (58kg) Energy: 0303-8191 kcal/day (25-30 kcal/kg for maintenance) Protein: 46-58 g/day (0.8-1 g/kg for maintenance) Fluid: 5593-0672 mL/day (1 mL/kcal) Nutrition Diagnosis: 1. Altered GI function r/t diabetic gastroparesis a/e/b pt was admitted with intractable nausea and vomiting. 2. Impaired nutrition utilization r/t endocrine dysfunction a/e/b elevated glucose levels 3. Altered nutrition related labs r/t intractable vomiting a/e/b RN intractable emesis, decreased Na, K level Intervention 1. Continue NPO as medically necessary 2. Recommend PN support due to prolonged NPO status (PN should provide [id number] kcals, 45-60 gm protein) Monitor/Evaluate Goal: Pt meeting at least 75% of estimated needs (not met, NPO, ongoing) Monitor: Diet implementation, Labs, GI function F/U in 2-3 days as high risk 11/24-
--- NOTE | 2019-11-23 16:56 | NUR ---
Intervention 1. Continue NPO as medically necessary 2. Recommend PN support due to prolonged NPO status (PN should provide [phone] kcals, 45-60 gm protein)
--- NOTE | 2019-11-23 18:15 | NUR ---
PT REQUESTED DAULADID FOR BREAKTHROUGH PAIN. 09/22. PT REPORTS N/V. REGLAN AND ZOFRAN WERE GIVEN PER EMAR. EMESIS 300ML. AT 1630 BSG 63. GAVE 375 ML OF ORANGE JUICE. RECHAKED IN [address] MIN[address]ES [address]G 70. NOTIFIED [address] HOWE ABOUT LOW GLUCOSE LEVEL. RECEIVED A T.O TO CHANGE IV FLUID TO D51/2NS KCL 40MEQ AT 80ML/HR.
--- NOTE | 2019-11-23 18:52 | NUR ---
AT 1633 GAVE CLONIDINE PRN PER EMAR FOR PERSITENT ELIVATED BP, AT THIS TIME BP 156/102. IV NOW INFUSING D51/2NS 40MEQ KCL AT 80ML/HR. MANICATED FOR PAIN AND NAUSEA. PT APEARS TO HAVE LESS NAUSEA AND VOMITING THIS AFTERNOON. WILL ENDORE TO TOBACCO PRIZER NURSE.
[2019-11-23 20:31] VITALS: BP 140/91
[2019-11-24 05:30] VITALS: BP 171/109
[2019-11-24 08:15] VITALS: BP 172/94
--- NOTE | 2019-11-24 08:20 | NUR ---
RECEIVED REPORT FROM A PSYCHOLOGISTS NURSE. PT IS ASLEEP, BUT AWAKES EASILY WHEN TALK TO. C/O PAIN AND NAUSEA. RECEIVES DILAUDID FOR PAIN AND REGLAN FOR NAUSEA PER EMAR. WILL CONTINUE TO MONITOR. TELE#2 SR. IV TO LW INFUSING D51/2NS+KCL 40MEQ AT 80ML/HR. NO PAIN OT ERYTHEMA NOTED.
--- NOTE | 2019-11-24 12:14 | NUR ---
0800 PT VOMITED. GAVE REGLAN IVP PER EMAR. EMESIS 400ML. 0830 RECEIVED ORDER TO CHANGE DIET TO CLEAR LIQUID. PT MADE AWEAR ABOUT DIET CHANGE. 1130 AMBULATED TO THE BATHROOM. C/O PAIN IN HER ABDOMEN. GAVE DILAUDID PER EMAR. 1200 LAYING COMFORTABLY IN BED.
[2019-11-24 12:20] VITALS: BP 170/99
[2019-11-24 16:28] VITALS: BP 117/81
--- NOTE | 2019-11-24 18:06 | NUR ---
PT IS A/O X4. VS STABLE. AFEBRILE. TELE#2 SR 74. C/O PAIN IN HER ABDOMEN. GIVEN DILAUDID PER EMAR. C/O NAUSEA. NO VOMITING AT THIS TIME. REGLAN GIVEN PER EMAR. BSG 131, 128. NO INSULIN GIVEN. IV D51/2NS INFUSING AT 80ML/HR. IV SITE CDI, PATENT, NO ERYTHEMA, PAIN NOTED. WILL ENDORSE TO ONCOMING SHIFT NURSE.
--- NOTE | 2019-11-24 19:38 | NUR ---
RECEIVE PT SLEEPING BUT EASILY AROUSABLE. GCS 15. NO DISTRESS NOTED IN RA, SR ON TELE.IVF RUNNING RUNNING ORDERED. FALL PRECAUTION IN PLACE, CALL LIGHT WITHIN REACH. WILL CONTINUE TO MONITOR.
[2019-11-24 20:12] VITALS: BP 138/91
[2019-11-25 05:25] VITALS: BP 150/92
--- NOTE | 2019-11-25 06:15 | NUR ---
PT IS AWAKE/ALERT GCS 15, NO DISTRESS NOTED IN RA. ST ON TELE (HR ON 100s), ALL VS WDL. PAIN AND N/V HAS BEEN MANAGED NEEDED. G-J TUBE IN PLACE-CLAMPED, NO OPEN AREA, SKIN INTACT. PT IS AMBULATORY WITH STANDBY ASSIST FOR SAFETY, FALL PROTOCOL IN PLACE. IV IS PATENT, FLUID RUNNING ORDERED. NO ACUTE EVENTS OVERNIGHT, ALL NEEDS WERE MET.
--- NOTE | 2019-11-25 07:10 | NUR ---
PT IS AAOX4. TELE [address] READING SINUS TACH HR 135. PT DENIES C/P AND PRESSURE. LUNG SOUNDS CTA. ON RA. PT HAS J TUBE TO LLQ SITE WNL. COVERED WITH CDI DRESSING. IVF RUNNING TO L WRIST. SITE WNL. ABDOMEN TENDER, ROUND, NONDISTENDED. BOWEL SOUNDS ACTIVE. PT HAS C/O VOMITING. STATES PAIN IS 7/10 TO THE ABDOMEN. PT WILL BE MEDICATED FOR PAIN PER APR. CALL LIGHT WITHIN REACH.
--- NOTE | 2019-11-25 07:39 | NUR ---
DILAUDID IVP PRN GIVEN ORDERED FOR 09/22 PAIN TO ABDOMEN. PT SHAKING AND TACHYCARDIC. RESP EVEN AND UNLABORED. WILL CONTINUE TO MONITOR.
[2019-11-25 08:03] VITALS: BP 158/99
--- NOTE | 2019-11-25 09:14 | NUR ---
SCHEDULED MEDS GIVEN AND TOLERATED WELL. B/P 158/99, HR 118. PT CALM AND DENIES PAIN AT THIS TIME. CALL LIGHT WITHIN REACH.
--- NOTE | 2019-11-25 10:15 | NUR ---
RECEIVED ORDER FROM DR. SNELL FOR CHANGE DILAUDID IVP TO Q 6 HOURS PRN. ADVANCE IVF TO 125 ML/HOUR. CBC AND CMP NOW, CBC AND BMP X 3 MORE DAYS. ORDERS NOTED AND CARRIED OUT. PT MADE AWARE.
--- NOTE | 2019-11-25 11:51 | NUR ---
RECEIVED ORDER FOR DR. SNELL, CHANGE DILAUDID IVP 1MG TO Q 4 HOURS PRN. ORDER NOTED AND CARRIED OUT.
--- NOTE | 2019-11-25 11:57 | NUR ---
BLOOD SUGAR 131, NO INSULIN INDICATED PER RISS.
[2019-11-25 12:07] VITALS: BP 183/102
--- NOTE | 2019-11-25 12:20 | NUR ---
DILAUDID IVP PRN GIVEN ORDERED FOR PAIN 10/10 TO ABDOMEN. WILL CONTINUE TO MONITOR.
--- NOTE | 2019-11-25 13:54 | NUR ---
DILAUDID IVP PRN GIVEN ORDERED FOR PAIN 10/10 TO ABDOMEN. WILL CONTINUE TO MONITOR.
--- NOTE | 2019-11-25 14:18 | NUR ---
TORODOL IPV PRN GIVEN ORDERED FOR PAIN 7/10 TO ABDOMEN. ZOFRAN IVP PRN GIVEN ORDERED FOR NAUSEA AND VOMITING. WILL CONTINUE TO MONITOR.
--- NOTE | 2019-11-25 15:11 | NUR ---
RECEIVED ORDER FROM DR. SNELL, MAY ACCESS BLE FOR IV CATHETER PLACEMENT. MAY ACCESS EXTERNAL JUGULAR IF UNABLE TO GAIN ACCESS TO EJ. ORDERS NOTED AND CARRIED OUT. PT MADE AWARE.
[2019-11-25 15:16] LABS: ALKALINE PHOSPHATASE 66 U/L (46-116); ALT/SGPT 14 U/L (14-59); AST/SGOT 15 U/L (15-37); BILIRUBIN TOTAL 0.5 mg/dL (0.20-1.00); CALCIUM 8.8 mg/dL (8.5-10.1); CARBON DIOXIDE 22.1 mmol/L (21-32); CHLORIDE SERUM 99 mmol/L (98-107); CREATININE SERUM 0.9 mg/dL (0.6-1.0); GFR1 > 60 mL/min; GLUCOSE SERUM 144 mg/dL (74-106); POTASSIUM SERUM 3.6 mmol/L (3.5-5.1); SODIUM SERUM 132 mmol/L (136-145)
[2019-11-25 15:17] LABS: BASOPHIL % 3.8 % (0-2); PLATELET COUNT 451 x10^3mcL (130-400); RED CELL DISTRIBUTION WIDTH 14.6 % (11.5-14.5)
[2019-11-25 15:20] LABS: ALBUMIN 2.3 g/dL (3.4-5.0); TOTAL PROTEIN, SERUM 5.7 g/dL (6.4-8.2)
--- NOTE | 2019-11-25 15:20 | NUR ---
IV CATH FELL OUT. PT HARD STICK. PROFESSOR THEODORE ATTEMPTED IV CATH INSERTION TO BLE WITH NO SUCCESS. ATTEMPTED EXTERNAL JUGULAR ACCESS WITH NO SUCCESS. RAC IV ACCESS WAS ACHEIVED WITH USE OF ULTRA SOUND. COVERED WITH CDI DRESSING. PT TOLERATED PROCEDURE WELL.
--- NOTE | 2019-11-25 15:35 | NUR ---
DILAUDID IVP PRN GIVEN ORDERED FOR ABDOMINAL PAIN 11/22. WILL CONTINUE TO MONITOR.
--- NOTE | 2019-11-25 16:02 | NUR ---
BLOOD SUGAR 121 NO INSULIN GIVEN INDICATED BY RISS.
[2019-11-25 17:16] VITALS: BP 166/93
--- NOTE | 2019-11-25 18:57 | NUR ---
RESP EVEN AND UNLABORED. PT UNEASY, NO N/V AT THIS TIME. TELE [address] READ[address] NSR[address] IV CATH TO RAC PATENT, NO S/S OF INFECTION OR INFILTRATION. CALL LIGHT WITHIN REACH. WILL ENDORSE ALL CARE TO NOC RN.
--- NOTE | 2019-11-25 19:59 | NUR ---
PT RECIEVED AAO REG RESP NO SOB R/A SAT 97%,PT WAS VOMITING CLEAR WATER SECREATION,IV INFUSING WELL WITH ROLAN SITE PATENT AND INTACT,PT ON TELE MONITOR AND IN NSR NO ECTOPY OR CHEST PAIN AT THIS TIME,BED IN THE LOW POSITION AND LOCKED,KEPT CLEAN AND DRY TO TOUCH,CALL LIGHT EASY REACHED AND WILL CONTINUE TO MONITOR.
--- NOTE | 2019-11-25 20:01 | NUR ---
CALL TO DR EDWARDS AND ORDER TO HAVE PHERNEGAN THE REGLAN AND THE ZOFRAN SEEM NOT WORKING,PT AMARIS AT THIS TIME,WILL CONTINUE TO MONITOR.
--- NOTE | 2019-11-25 22:29 | NUR ---
OT SLEEPING SOUNDLY AT THIS TIME,WILL COTINUE TO MONITOR.
[2019-11-26 05:09] VITALS: BP 103/64
--- NOTE | 2019-11-26 06:07 | NUR ---
PT HAS GT CLAMPED AND IV SITE TO THE RT AC SWOLLEN BUT PATENT REFUSING TO HAVE IT REMOVED AND START A NEW ONE,PTHAD A RESTING NIGHT,KEPT CLEAN AD DRY TO TOUCH AND WILL CONTINUE TO MONITOR.
[2019-11-26 07:37] LABS: BASOPHIL % 0.8 % (0-2); RED CELL DISTRIBUTION WIDTH 14.5 % (11.5-14.5)
[2019-11-26 07:51] LABS: PLATELET COUNT 401 x10^3mcL (130-400)
[2019-11-26 08:11] LABS: CALCIUM 8.4 mg/dL (8.5-10.1); CARBON DIOXIDE 25.8 mmol/L (21-32); CHLORIDE SERUM 101 mmol/L (98-107); CREATININE SERUM 0.8 mg/dL (0.6-1.0); GFR1 > 60 mL/min; GLUCOSE SERUM 87 mg/dL (74-106); POTASSIUM SERUM 3.6 mmol/L (3.5-5.1); SODIUM SERUM 133 mmol/L (136-145)
--- NOTE | 2019-11-26 16:14 | NUR ---
Follow-up Nutrition Assessment: 240 B TEMO GOTTI 34F HR Dx: intractable vomiting, hypokalemia PMHx: HTN, DM, Diabetic Gastroparesis, h/o laparoscopic cholecystectomy in 03/2018 PSHx: laparoscopic cholecystectomy and G-tube placement Labs: (11/25) NA 133L, BUN 3.9L, CA 8.4L, RBC 3.66L, H/H/ 11L/32L, PLT 401H, LYMPH% 49.7H (11/22) NA 129L, K 3.0L, BUN 6L, TRIG 180H, (11/18: DERRICK 206H, LDL 102H), H/H 10.5/31L Meds: Phenergan, hydromorphone, KCL, Adalat, Zestril/Prinivil, Reglan, NACL, Humulin, magnesium sulfate, Zofran, Tylenol, Catapres, Diet: Full Liquid PO Intake: (11/23) Clear liquid: D: 0% Weights: (11/25) Bed scale: 68.90 kg/ 151.6 lbs, (11/22) Bed scale: 73.2 kg, (11/19) Bed scale: 71 kg (checked by RN) Edema: no noted Last BM: 11/22 Skin: CDI, J Tube to L mild abd, dressing CDI, no s/s of infection noticed Vj: 22 I/Os: (11/25) 1285/-=1285, (11/24) 2880/710=4888, (11/23) 1960/645=6074, (11/21) 1190/-=[address] (11/22): Pt was asleep at time of visit, obtained wt on bed scale: 162 lbs (73.2 kg), per pt's primary RN, pt vomited 2x today, pt has gastric tube drainage bag with greenish output per nursing. Per progress note (11/24): Still complaining of abdominal pain. Is very upset when wanting to change dosing of Dilaudid and reports that all other medications are not helping RD Note (11/25): Per progress note (11/25) Patient wanting to eat solid foods does not want clear liquids. During visit, pt was asleep, and her food tray was untouched on her bed side table. It was also observed three clean vomit bags on the table. Pt's bed scale weight was taken: 68.90kg. Pt's RN denied pt's N/V today, RN also stated that pt get up and goes to the restroom, but she does not know if pt has BMs. Lastly, Pt's RN stated that pt just want her pain medication and sleeps all day. Estimated Nutritional Needs Based on adjusted body weight (58 kg) Energy: 1450 - 1740 kcal/day (25 - 30 kcal/kg for maintenance) Protein: 46 - 58 g/day (0.8 - 1 g/kg for maintenance) Fluid: 1450 - 1740 mL/day (1 mL/kcal) Nutrition Diagnosis: 1. Altered GI function r/t diabetic gastroparesis a/e/b pt was admitted with intractable nausea and vomiting. (ongoing) 2. Impaired nutrition utilization r/t endocrine dysfunction a/e/b elevated glucose levels (ongoing) 3. Altered nutrition related labs r/t intractable vomiting a/e/b RN reported intractable emesis, decreased Na and K levels. (ongoing). Intervention: 1. Recommend CCHO 60 gm, Full Liquid as tolerate 2. Recommend CCHO 60 gm when pt is appropriate to receive solid food 3. Recommend MVI QD Monitor/Evaluate: Goal: Have pt meet at least 75% of estimated needs (no met, ongoing) Monitor: Diet implementation, PO intake, Labs, GI function F/U in 2-3 days as high risk 11/27-
[2019-11-26 16:15] VITALS: BP 121/78
--- NOTE | 2019-11-26 16:15 | NUR ---
1. Recommend CCHO 60 gm, Full Liquid as tolerate 2. Recommend CCHO 60 gm when pt is appropriate to receive solid food 3. Recommend MVI QD
--- NOTE | 2019-11-26 19:29 | NUR ---
PT RECIEVED AAO ANGRY,ANXIOUS,REG RESP NO SOB R/A SAT 96%.HL TO THE RT HAND INFILTRATED AND PATIENT REFUSING TO BE TAKEN OUT SINCE LAST NIGHT,ABDO IS SOFT WITH ACTIVE BOWEL SOUNDS,PT HAS GT CLAMPED AT THIS TIME,BED IN THE LOW POSITION AND LOCKED,KEPT CLEAN AND DRY TO TOUCH,NO VOMITING AT THIS TIME,KEPT CLEAN AND DRY TO TOUCH AND BED IN THE LOW POSITION AND LOCKED,CALL LIGHT EASY REACHED AND WILL CONTNIUE TO MONITOR.
--- NOTE | 2019-11-26 21:18 | NUR ---
PT ANXIOUS AND SAYS WANT SOMETHING TO CALM HER DOWN,CALL JOSEPHINE JUNG EVENT STAFF WAITING TO BE CALL BACK.
--- NOTE | 2019-11-26 21:27 | NUR ---
DR JUNG CALL BACK WITH ORDERS TO GIVE ATIVAN 1 MG IV Q6 PRN,WILL CONTINUE TO MONITOPR.
[2019-11-26 21:31] VITALS: BP 138/94
--- NOTE | 2019-11-26 21:45 | NUR ---
ATIVAN 1 MG IV ADMINISTER ORDER AND WILL CONTINUE TO MONITOR.
--- NOTE | 2019-11-27 01:14 | NUR ---
PT SLEEPING SOUNDLY AT THIS TIME,WILL CONTINUE TO MONITOR.
[2019-11-27 05:33] VITALS: BP 140/93
--- NOTE | 2019-11-27 06:17 | NUR ---
PT HAD A RESTING NIGHT,NO CHANGE AT THIS TIME,KEPT CLEAN AND DRY TO TOUCH AND WILL CONTINUE TO MONITOR.
--- NOTE | 2019-11-27 08:00 | NUR ---
RECEIVED PATIENT SLEEPY BUT ARROUSES WITH TACTILE AND IS REQUESTING PAIN MEDICATION AT THIS TIME. SHE H A J TUBE THAT IS CLAMPED AND HAS BEEN ON ZOFRAN, REGLAN AND PHENERGAN. PATIENT AHS BEEN RECIEING DILAUDID AND HER LAST DOSING AT 448 THIS AM. APTIENT SUZETTE ALREADY REQUESTED PAIN MEDICIATION AND WILL NEED TO WAIT A LITTLE LONGER. PATIENT WITH PHENERGAN AT 535 AND PATIENT HAS NOTED HISTORY OF PAIN MEDICATION SEEKINT BEHAVIORS. SHE HAS A HISTORY OF DIABETES, HYPERTENSION, DERRICK ON 04/03, AND GASTROPARESS AND THE LAST J TUBE PLACES SIX DAYS AGO. AURORA HAS HYPOACTIVE BOWEL SOUNDS AND HAS DIMINISHED BREATH SOUNDS. SHE IS AMBULATORY AND NOW STANDING AT THIE DOOR AND REQUESTING PAIN MEDICATION AT THIS TIME.
[2019-11-27 08:57] VITALS: BP 145/98
--- NOTE | 2019-11-27 12:06 | NUR ---
PATIENT SEEN BY THE DOCTOR AND HE WAS ON PURPOSE TITRATING DONW HER PAIN MEDCIATON. IT WAS AT Q 3 AND NO AT Q6 FOR DILAUDID. PATIENT IS MILDLY ANXIOUS AND SHE GOT ON HER PHONE AND IS WANTING TO LEAVE BUT SO FAR REMAINS .
[2019-11-27 12:17] VITALS: BP 138/86
--- NOTE | 2019-11-27 13:39 | NUR ---
CALLED THE DR FOR ORDERS FOR DIET SHE STATES THE DOCTOR HAD PROMISED A REGULAR DIET FOR HER. AWAITING CALL BACK AT THIS TIME.
--- NOTE | 2019-11-27 14:02 | NUR ---
NO CALL BACK YET FROM THE DR AND WILL CALL AGAIN FOR DIET HE "PROMISED" THE PATIENT OR VERIFY THE ORDERS. PATIENT AHS BEEN OOB AND ASKINF RO MORE PAIN MEDCIATIKON TO. ADVISE THE ORDERS HAVE CHANGED AND THAT THE DILAUDID IS NOT DUR YET PER ORDERS. =
--- NOTE | 2019-11-27 14:15 | NUR ---
RECEIVED TELEPHONE ORDER BY TO ORDER REGULAR DIET FOR MS. GOTTI.
--- NOTE | 2019-11-27 16:25 | NUR ---
AURORA EXPRESSED SHE HAS AN ALLERGY TO PEANUT BUTTER. PLACE IN THE RECORD ORDERED.
[2019-11-27 17:03] VITALS: BP 152/86
--- NOTE | 2019-11-27 18:38 | NUR ---
STAFF STATES SHE AGREED FOR ANOTHER IV START BUT WHEN ENTERED THE ROOM SHE REFUSED.
--- NOTE | 2019-11-27 18:45 | NUR ---
PT IS SLEEPING THIS TIME. IV ACCESS SITE IS SWOLLEN BUT PT REFUSED ANOTHER IV. NO SIGNS OF PAIN AND SOB THIS TIME. SAFETY PRECAUTIONS IN PLACE. WILL CONTINUE TO MONITOR.
--- NOTE | 2019-11-27 19:30 | NUR ---
PT IS A/O X4. FATIGUE. ON TELEMONITOR 48. NSR. DENIES CP AND CHEST PRESSURE. PULSES PALPABLE AND NO EDEMA NOTED. DIMINISHED BILATERAL BASES. ON ROOM AIR. DENIES SOB. DENIES ABD PAIN. ABD SOFT AND ROUND. LAST BM 11/23/19. C/O CRAMPS IN ABD. ALSO C/O INTERMITTENT N/V THROUGHOUT THE DAY BUT DENIES ANY AT THIS TIME. VOIDS AND AMBULATES TO RR. GENERALIZED WEAKNESS. DENIES PAIN AT THIS TIME. IV ON RAC IN PLACE. NO FLUIDS RUNNING PATIENT IS REFUSING. BED IN LOWEST AND LOCKED POSITION. CALL LIGHT WITHIN REACH. WILL CONT TO MONITOR.
--- NOTE | 2019-11-27 19:35 | NUR ---
PT REQUESTING A TUNA SANDWICH. GIVEN REQUESTED.
--- NOTE | 2019-11-27 20:10 | NUR ---
PT IS RESTING WITH EYES CLOSED. BREATHING E/U. NO DISTRESS NOTED AT THIS TIME. WILL CONT TO MONITOR.
--- NOTE | 2019-11-27 20:42 | NUR ---
BLOOD SUGAR 118 MG/DL. NO COVERAGE GIVEN AT THIS TIME PER SLIDING SCALE.
[2019-11-27 21:27] VITALS: BP 117/50
--- NOTE | 2019-11-28 03:49 | NUR ---
PATIENT C/O ABD PAIN 11/22. GAVE DILAUDID PRESCRIBED THROUGH IV SITE. TOLERATED WELL. WILL F/U WITH EFFECT OF MEDICATION.
--- NOTE | 2019-11-28 04:45 | NUR ---
PTS IV ACCESS HAS FALLEN OUT. NO LONGER INTACT IN SKIN. CATHETER INTACT. NO BLEEDING NOTED. I HAVE ATTEMPTED X2 AND ANOTHER RN ATTEMPTED X1 TO INSERT NEW IV ACCESS. AN IV ACCESS CANNOT BE INSERTED. NOTIFIED CHARGE NURSE. WILL NOTIFY THIS TO ONCOMING AM NURSE WELL.
[2019-11-28 05:16] VITALS: BP 153/81
--- NOTE | 2019-11-28 05:50 | NUR ---
PTS BLOOD SUGAR 89 MG/DL. NO COVERAGE GIVEN AT THIS TIME.
[2019-11-28 06:47] LABS: PLATELET COUNT 382 x10^3mcL (130-400)
[2019-11-28 06:51] LABS: RED CELL DISTRIBUTION WIDTH 14.7 % (11.5-14.5)
[2019-11-28 07:14] LABS: CALCIUM 8.2 mg/dL (8.5-10.1); CARBON DIOXIDE 26.6 mmol/L (21-32); CHLORIDE SERUM 101 mmol/L (98-107); CREATININE SERUM 0.6 mg/dL (0.6-1.0); GFR1 > 60 mL/min; GLUCOSE SERUM 89 mg/dL (74-106); POTASSIUM SERUM 3.4 mmol/L (3.5-5.1); SODIUM SERUM 135 mmol/L (136-145)
[2019-11-28 08:00] VITALS: BP 147/101
--- NOTE | 2019-11-28 08:00 | NUR ---
PATIENT RECEIVED SLEEPING AND DOES NOT APPEAR IN PAIN OR DISTRESS AT THIS TIME. PATIENT HAS BEEN REFUSING RESTART ALTHOUGH LAST NIGHT ATTEMPTS MADE BUT UNSUCCESSFUL. PATIENT HAS DIMINISHED BREATH SOUNDS AND NO COUGH HEARD. NO REPORTS OF NAUSE AOR VOMITING AND HAD LOOSE STOOL LAST NIGHT. SHE HAS BEEN OOB AND SHE HAS STEADY GATE. THE J TUBE CLAMPED AND SHE HAS HYPOACTIVE OWEL SOUNDS. PULSES PALPABLE AND STRONG TO EXTREMITES WITH SOME TRACE EDEMA TO THE LOWER EXTREMITIES. STABLE AT THIS TIME AND WILL CONTINUE TO MONITOR.
--- NOTE | 2019-11-28 10:36 | NUR ---
TWO ATTEMPTS MADE AND WAS ABLE TO PLACE IV TO THE HEAND ON THE RIGHT WITH ONLY A 24 GAUGE. ADVISED THE PATIENT THAT THE MEDICATIONS WILL NEED TO GO SLOWLY IN THE SILVANA DUE TO ITS SMALL SIZE. PATIENT TOLERATED WELL.
--- NOTE | 2019-11-28 10:49 | NUR ---
PHYSICIAN CAME IN AND IS GOING TO DISCHARGE PATIENT AND TO HAVE HER FOLLOW UP WTIH HER LEGUILLON DEBEADER FOR HER CHRONIC GASTROPARESIS. PATIENT TOLERAT EH IV START WELL BUT ONLY A 24 GAUGE WAS ABLE TO BE PLACED. AWAITING ORDERS AT THIS TIME.
--- NOTE | 2019-11-28 11:02 | NUR ---
GAVE DILAUDID FOR PAIN AND WILL CONTINUE TO MONITOR. DR IS TO WRITE A SCRIPT FOR MEDICATION FOR PAIN AT HOME. PLAN IS TO DISCHARGE HOME TODAY.
[2019-11-28 11:47] VITALS: BP 177/116
--- NOTE | 2019-11-28 12:49 | NUR ---
GOOD RELIEF FROM THE DILAUDID NOTED. PATIENT IS RESTINGH QUIETLY AT THIS TIME. WILL CONTINUE TO MONITOR. AWAITING DISCHRAGE ORDERS PER THE PRIMARY.
[2019-11-28 13:22] VITALS: BP 177/116
--- NOTE | 2019-11-28 13:35 | NUR ---
PATIENT STATES ANXIOUS AND SHE STATES SHE HAS NO RIDE TILL 8 PM TONIGHT. ADIVSED THE CHARGE AND THE ONE TO ONE STAFF. PATIENT HEART RATE ELVATED AND SHE IMPLIED ITS HER WORRING ABOUT A RIDE AND HER DISCHARGE. ASSURED HER WE WILL WAIT TILL FAMILY COMES TO GET HER.
[2019-11-28 16:14] VITALS: BP 141/86
--- NOTE | 2019-11-28 16:25 | NUR ---
Follow-up Nutrition Assessment: [address] B TEMO GOTTI 34F HR Dx: intractable vomiting, hypokalemia PMHx: HTN, DM, Diabetic Gastroparesis, h/o laparoscopic cholecystectomy in 03/2018 PSHx: laparoscopic cholecystectomy and G-tube placement Labs: (11/27) NA 135L, K 3.4L, BUN 6.0L, CA 8.2L, RBC 3.47L, H/H 10.3L/31L (11/25) NA 133L, BUN 3.9L, CA 8.4L, RBC 3.66L, H/H/ 11L/32L, PLT 401H, LYMPH% 49.7H (11/22) NA 129L, K 3.0L, BUN 6L, TRIG 180H, (11/18: DERRICK 206H, LDL 102H), H/H 10.5/31L Meds: Ativan, Phenergan, hydromorphone, Adalat, Zestril/Prinivil, Reglan, Humulin, Zofran, Tylenol, Catapres, Diet: Regular PO Intake: (11/23) Clear liquid: D: 0%, (11/25) orange juice, (11/26) Regular: D: 75%, (11/27) B: 75%, Average: 50% x 3 meals, 75% x 2 meals on Regular diet Weights: (11/27) Bed scale: 64.1 kg/141lbs, (11/25) Bed scale: 68.90 kg/ 151.6 lbs, (11/22) Bed scale: 73.2 kg, (11/19) Bed scale: 71 kg (checked by RN) Edema: no noted Last BM: 11/27 (formed) per pt Skin: J Tube in place, no redness or skin breakdown noted Vj: 21 I/Os: (11/27) 1260/5=0541, (11/26) 360/-=360, (11/25) 1285/-=1285, (11/24) 2880/458=8106, (11/23) 1960/100=[address] (11/25) Per progress note (11/25) Patient wanting to eat solid foods does not want clear liquids. During visit, pt was asleep, and her food tray was untouched on her bed side table. It was also observed three clean vomit bags on the table. Pt's bed scale weight was taken: 68.90kg. Pt's RN denied pt's N/V today, RN also stated that pt get up and goes to the restroom, but she does not know if pt has BMs. Lastly, Pt's RN stated that pt just want her pain medication and sleeps all day RD Note (11/27): Per discharge summary (11/27) Patient admitted and started on IV pain medications and was n.p.o. with IV fluid hydration. Patient gradually recovered and thus was weaned off of Dilaudid every 8 hours and patient was tolerating, patient able to advance diet very slowly from clear liquids up to regular diet diabetic and was able to tolerate approximately around 50% of her meals. Patient still with pain but has gastric stimulator done from [facility]. During visit, pt was lying in bed, she was awake and verbally responsive, pt reported a formed BM yesterday. Pt denied any N/V/D/C today. Also, when pt was asked about her appetite, pt stated "I just want to sleep;" however, she mentioned that she likes the Ensure. Her food tray was observed on the bedside table, and pt ate about 90% of rice pilaf and zucchini, but the baked chicken breast, soup, and pudding were untouched. They were also observed three unopened bottles of Ensure on the table. Estimated Nutritional Needs Based on adjusted body weight (58 kg) Energy: 1450 - 1740 kcal/day (25 - 30 kcal/kg for maintenance) Protein: 46 - 58 g/day (0.8 - 1 g/kg for maintenance) Fluid: 1450 - 1740 mL/day (1 mL/kcal) Nutrition Diagnosis: 1. Altered GI function r/t diabetic gastroparesis a/e/b pt was admitted with intractable nausea and vomiting. (resolved)-Pt denied N/V 2. Impaired nutrition utilization r/t endocrine dysfunction a/e/b elevated glucose levels (ongoing). 3. Altered nutrition related labs r/t intractable vomiting a/e/b RN reported intractable emesis, decreased Na and K levels. (ongoing)-Pt denied any vomiting, but Na an K still low. 4. Inadequate energy and protein intake r/t pt poor PO intake a/e/b pt' consumes < 75% kcal and protein needs. (new). Intervention: 1. Recommend CCHO 60 gm diet as tolerate. Monitor/Evaluate: Goal: Have pt meet at least 75% of estimated needs (no met, ongoing) Monitor: Diet implementation, PO intake, Labs, GI function F/U in 2-3 days as high risk 11/29-
--- NOTE | 2019-11-28 16:26 | NUR ---
1. Recommend CCHO 60 gm diet as tolerate.
--- NOTE | 2019-11-28 16:38 | NUR ---
PATIENTS BOYFRIEND MATTHIAS CALLED AN DADVISE THE PATIENHT TO CALL BACK. REMINDED THE PATIENT TO CALL THE FATHER FOR RETAINING ROOM CUTTER.
--- NOTE | 2019-11-28 18:10 | NUR ---
PT IS AWAKE, RELAXED. EATING THIS TIME. DENIES SOB. WILL BE GIVEN PRN PAIN MEDICATION IN 30MIN WHEN AVAILABLE TO ADMINISTER. PT STATES SHE HAS TRANSPORTATION AVAILABLE AT 2000 FOR DISCHARGE. SAFETY PRECAUTIONS IN PLACE. WILL CONTINUE TO MONITOR.
--- NOTE | 2019-11-28 18:14 | NUR ---
PATIENT ADVISED IV WILL BE REMOVED POST THE LAST DOSING OF THE DILAUDID. SHE IS TO BE PICKED UP AROUND 8PM PER THE PATIENT. PATIENT IS ACCEPTING OF THIS PLAN OF CARE.
--- NOTE | 2019-11-28 19:20 | NUR ---
PATIENT IS A/O X4. CURRENTLY RESTING WITH EYES CLOSED. BREATHING E/U. NO DISTRESS NOTED. ON TELEMONITOR 48. NSR AND OCCASIONALLY SINUS TACHY. PULSES PALPABLE AND NO EDEMA NOTED. LUNG SOUNDS DIM AT BASES. ON ROOM AIR. NORMOACTIVE BOWEL SOUNDS X4. GJ TUBE CLAMPED. AMBULATORY AND VOIDS IN RR. DENIES DYSURIA. DENIES PAIN AT THIS TIME. BED IN LOWEST AND LOCKED POSITION. CALL LIGHT WITHIN REACH. WILL CONT TO MONITOR.
--- NOTE | 2019-11-28 20:25 | NUR ---
PRIOR TO D/C I NOTICED A BAG OF EMESIS THAT THE PATIENT WAS HOLDING. ABOUT 400 ML. TANNISH WITH WHITE BITS IN COLOR. ODOR NOTED. STATED SHE DID NOT FEEL LIKE THROWING UP AT THIS TIME. I ALSO ASKED HER IF SHE WOULD LIKE ANY MEDICATION FOR NAUSEA AND SHE DENIED ANY MEDS AT THIS TIME. WILL CONT TO MONITOR SHE HAS NOT PASSED EMESIS RECENTLY.
[2019-11-28 20:30] VITALS: BP 111/81
--- NOTE | 2019-11-28 20:30 | NUR ---
PATIENT HAS BEEN D/C. ALL BELONGINGS SENT HOME WITH PATIENT. PATIENT GIVEN D/C PACKET WITH INSTRUCTIONS. IV CATHTER REMOVED BY AM SHIFT NURSE. TELEMONITOR REMOVED AND RETURNED TO TELEMONITOR TECH. ID BANDS REMOVED. BOYFRIENDS PATIENT CALLED AND STATED HE WOULD BE PICKING HER UP IN FRONT OF THE LOBBY. PATIENT TAKEN DOWN VIA WHEELCHAIR TO BOYFRIEND. PATIENT THEN WAS ABLE TO AMBULATE TO CAR WITH A BALANCED AND STEADY GAIT. PATIENT IN STABLE CONDITION.
--- NOTE | 2019-11-29 07:52 | NUR ---
DIETITIAN CO-SIGN The Nutrition Notes documented by the Science Intern have been reviewed. Reviewed/Co-Signed by: Kumar Willis Documentation Done by: Pat Rodriguez
== END 2019-11-28 20:44 | disposition home or self-care (01) | DRG 48 ==
LOC: ED 20:27 → DU 23:06 → MU 23:06 → DU 11-20 19:56
PROVIDERS: Hospitalist; Specialist; ADMIT Internal Medicine; ATTEND Internal Medicine
DX: E11.43 Type 2 diabetes mellitus with diabetic autonomic (poly)neuropathy (principal); Z93.4 Other artificial openings of gastrointestinal tract status; K31.84 Gastroparesis; E87.6 Hypokalemia; I10 Essential (primary) hypertension; Z20.828 Contact with and (suspected) exposure to other viral communicable diseases; G89.4 Chronic pain syndrome; E78.5 Hyperlipidemia, unspecified; F41.9 Anxiety disorder, unspecified; Z79.84 Long term (current) use of oral hypoglycemic drugs; Z90.49 Acquired absence of other specified parts of digestive tract
CPT/HCPCS: 82962; G0378; J1170; J1885; J2060; J2270; J2405; J2550; J2765; J3480

== ENCOUNTER 2019-11-29 21:02 | Inpatient (IN) | payer OTHER ==
[~2019-11-29] VITALS: Ht 162.6 cm; Wt 64.6 kg
[2019-11-29 21:03] VITALS: Ht 162.6 cm; Wt 64.6 kg
--- NOTE | 2019-11-29 21:10 | NUR ---
UNABLE TO OBTAIN BP AND O2 SAT AT TRIAGE. PT SHIVERING AND COLD.
--- NOTE | 2019-11-29 23:43 | NUR ---
PATIENT SEEN WITH COMPLAINT OF ABDOMINAL PAIN AND VOMITING. SEEN BY MD. . UNABLE TO STARTE SALINE LOCK. PATIENT IS ADIFFICULT STICK. MD AWARE.
--- NOTE | 2019-11-30 00:01 | NUR ---
PATIENT REQUESTING FOOD. PATIENT STATES, "IM REALLY HUNGRY CAN I HAVE SOMETHING TO EAT. I HAVEN'T VOMITED FOR A WHILE NOW." PER DR SAMUEL OK TO PROVIDE FOOD AN SEE IF PATIENT CAN TOLERATED IT. PATIENT AMBULATED TO RESTROOM WITH A STEADY GAIT AND BACK TO BED ORTHO. URINE COLLECTED.
--- NOTE | 2019-11-30 00:13 | NUR ---
PATIENT DENIES ANY N/V AT THIS TIME.
[2019-11-30 00:25] LABS: BASOPHIL % 0.5 % (0-2); PLATELET COUNT 460 x10^3mcL (130-400); RED CELL DISTRIBUTION WIDTH 14.7 % (11.5-14.5)
[2019-11-30 00:36] LABS: CALCIUM 8.8 mg/dL (8.5-10.1); CARBON DIOXIDE 26.3 mmol/L (21-32); CHLORIDE SERUM 95 mmol/L (98-107); GFR1 > 60 mL/min; GLUCOSE SERUM 82 mg/dL (74-106); POTASSIUM SERUM 4.1 mmol/L (3.5-5.1); SODIUM SERUM 132 mmol/L (136-145)
[2019-11-30 00:40] LABS: ALBUMIN 2.7 g/dL (3.4-5.0); ALKALINE PHOSPHATASE 85 U/L (46-116); ALT/SGPT 21 U/L (14-59); AST/SGOT 20 U/L (15-37); BILIRUBIN TOTAL 0.4 mg/dL (0.20-1.00); LIPASE 101 IU/L (73-393); TOTAL PROTEIN, SERUM 6.9 g/dL (6.4-8.2)
--- NOTE | 2019-11-30 01:24 | NUR ---
SALINE LOCL INSERTED BY SANDRA. PATIENT MEDICATED WITH ZOFRAN FOR VOMITING AND ATIVAN. PATIENT DEMANDING MORPHINE FOR PAIN. MD NOTIFIED . MORPHINE 4 MG GIVEN IVP.
--- NOTE | 2019-11-30 01:27 | NUR ---
PRIOR TO THE ZOFRAN PATIENT VOMITED LARGE AMOUNT OF CLEAR FLUID.
--- NOTE | 2019-11-30 01:48 | NUR ---
PATIENT IS SLEEPING, NO APPARENT DISTRESS
--- NOTE | 2019-11-30 03:01 | NUR ---
PATIENT IS AWAKE AND ASKING FOR HER ANXIETY MEDICATION AND PAIN MEDICATION. PATIENT IS REFUSING TO GO HOME STATING SHE NEEDS TO BE ADMITTED. DR SAMUEL WENT TO TALK TO THE PATIENT. REGLAN AND FLUID ORDERED. PATIENT WANTS MORPHINE.
--- NOTE | 2019-11-30 03:55 | NUR ---
`REPORT WAS GIVEN AND THE PATIENT WAS TRANSPORTED TO ROOM 254.
--- NOTE | 2019-11-30 03:56 | NUR ---
PATIENT CONTINUE TO ASK FOR ANXIETY MEDICATION AND PAIN MEDICATION.NASAL SWAB DONE FOR COVID SADIE..
--- NOTE | 2019-11-30 04:18 | NUR ---
PATIENT DRANK 2 CAN OF SPRITE, NO VOMITING.
[2019-11-30 05:17] VITALS: BP 130/83
--- NOTE | 2019-11-30 06:53 | NUR ---
INSERTED A 20G IV ON THE LEFT WRIST, IVF STARTED, PAIN MEDICINE GIVEN ORDERED, PT RESTING COMFORTABLY AT THIS TIME, CONTINUITY OF CARE ENDORSED TO DAY SHIFT RN
--- NOTE | 2019-11-30 07:37 | NUR ---
RECEIVED SLEEPING BUT AROUSABLE, IN NO ACUTE RESP. DISTRESS. NO C/O PAIN AT THIS TIME. CALL LIGHT WITHIN REACH. WILL CONTINUE WITH PLAN OF CARE.
[2019-11-30 08:04] VITALS: BP 124/80
--- NOTE | 2019-11-30 11:15 | NUR ---
C/O ABD. PAIN 11/22, MEDICATED WITH MORPHINE IVP. NO C/O NAUSEA AT THIS TIME.
[2019-11-30 12:18] VITALS: BP 164/80
[2019-11-30 16:08] VITALS: BP 139/83
--- NOTE | 2019-11-30 18:06 | NUR ---
PT C/O ABD. PAIN, TRAMADOL OFFERED BUT PT REFUSED, DEMANDING IV PAIN MEDS AND ALSO WANT TO EAT REGULAR FOOD.WILL PAGE DR. GONZALEZ
--- NOTE | 2019-11-30 19:20 | NUR ---
REPORT RECIEVED FROM DAY SHIFT NURSE, PT. RESTING IN BED. PT. DENIES ASSESMENT. PT. STATES SHE DOES NOT WANT ME TO DO A HEAD TO TOE ASSESMENT ON HER. WILL CONTINUE TO MONITOR.
--- NOTE | 2019-11-30 19:30 | NUR ---
REMAINS INNO ACUTE DISTRESS,DOSINGO AND OFF.NOC/OPAIN AT THIS TIME.NO CHANGES IN VS. PAGED FOR PAIN MEDS.NO RESPONSE YET. WILL BE ENORSED TO INCOMING SHIFT FOR F/U. IVF INFUSING WELL AND SITE CLEAR. CALL LIGHT WITHIN REACH.
--- NOTE | 2019-12-01 01:39 | NUR ---
PT. PAPER CHARTING IN FOLDER.
[2019-12-01 04:30] VITALS: BP 173/113
--- NOTE | 2019-12-01 04:31 | NUR ---
CHECK PT. EMAR SHEET IN FOLDER.
--- NOTE | 2019-12-01 05:11 | NUR ---
PT. BP 182/116 (138) DR. ANDERSEN NOTIFIED NEW ORDERS RECIEVED.
[2019-12-01 06:39] LABS: CALCIUM 8.3 mg/dL (8.5-10.1); CARBON DIOXIDE 25.7 mmol/L (21-32); CHLORIDE SERUM 103 mmol/L (98-107); CREATININE SERUM 0.7 mg/dL (0.6-1.0); GFR1 > 60 mL/min; GLUCOSE SERUM 121 mg/dL (74-106); MAGNESIUM 1.5 mg/dL (1.8-2.4); PHOSPHOROUS 4.3 mg/dL (2.5-4.9); POTASSIUM SERUM 3.8 mmol/L (3.5-5.1); SODIUM SERUM 137 mmol/L (136-145)
--- NOTE | 2019-12-01 06:44 | NUR ---
PT. RESTING IN BED W/ EYES CLOSED, EASILY AROUSABLE, NO FACIAL DROOP NOTED. NO ACUTE CHANGE/ DISTRESS NOTED. RR EVEN AND UNLABORED ON RA, CHEST RISE SYMT, L WRIST IV INTACT AND WNL. CALL LIGHT WITHIN REACH, BED IN LOWEST POSITION, WILL REPORT TO DAY SHIFT NURSE.
[2019-12-01 06:52] LABS: PLATELET COUNT 414 x10^3mcL (130-400); RED CELL DISTRIBUTION WIDTH 14.6 % (11.5-14.5)
--- NOTE | 2019-12-01 07:30 | NUR ---
RECEIVED PATIENT FROM PRECINCT CAPTAIN RN. PT A/OX4 ON RM AIR. PATIENT IS RESTING IN BED, EASILY AROUSABLE. IV ON LEFT WRIST IS PATENT WITH IVF INFUSING. SAFETY AND COMFORT MEASURES ARE IN PLACE. BED IN LOWEST SETTING. CALL LIGHT IS WITHINI REACH. WILL CONTINUE WITH PLAN OF CARE.
[2019-12-01 07:33] VITALS: BP 127/79
--- NOTE | 2019-12-01 08:31 | NUR ---
PT REFUSED AM MEDS, STATED "I WON'T TAKE ANF MEDS ORDERED BY DR. GONZALEZ SINCE HE REFUSED TO GIVE ME IV PAIN MEDS". PT LAYING IN BED, NO ACUTE RESP. DISTRESS NOTED. CALM AT THIS TIME. NO S/S OF DISCOMFORT. TOLERATED WELL WITH FULL LIQ DIET, STATED SHE WANT REAL FOOD. NO N/V NOR ABD. PAIN AT THIS TIME. IV PPN INFUSING WELL AND SITE CLEAR. CALL LIGHT WITHIN REACH. WILL CONTINUE WITH PLAN OF CARE.
[2019-12-01 12:02] VITALS: BP 114/72
--- NOTE | 2019-12-01 12:58 | NUR ---
PATIENT AWAKE RESTING IN BED ON HER RIGHT SIDE. NO ACUTE DISTRESS NOTED. PATIENT REQUESTS FOR ORDER TO BE CHANGED SO SHE CAN EAT SOLID FOODS. WAS CONTACTED. COMFORT AND SAFETY MEASURES IN PLACE. CALL LIGHT WITHIN REACH. WILL CONTINUE TO MONITOR.
--- NOTE | 2019-12-01 13:25 | NUR ---
PT IS VERY UPSET THAT SHE CAN NOT HAVE REGULAR FOOD OR IV PAIN MEDS. WANTED TO LEAVE, SIGNED AMA FORM. HL REMOVED WITH CATH INTACT. PT IS WAITING FOR RIDE HOME. WILL NOTIFY DR. SNELL.
--- NOTE | 2019-12-01 13:44 | NUR ---
PT LEFT AMA, IN NO ACUTE RESP. DISTRESS. AWAKE, ALERT AND ORIENTED X4 . VERBALIZED UNDERSTANDING OF THE RISK OF LEAVING AMA BUT STILL INSIST OF LEAVING. DR. SNELL NOTIFIED. PT TOOK ALL HER BELONGINGS WITH HER.
== END 2019-12-01 13:30 | disposition left against medical advice (07) | DRG 48 ==
LOC: ED 21:02 → MU 11-30 03:21
PROVIDERS: Emergency Medicine; ADMIT Hospitalist; ATTEND Hospitalist
DX: E11.43 Type 2 diabetes mellitus with diabetic autonomic (poly)neuropathy (principal); K31.84 Gastroparesis; R10.9 Unspecified abdominal pain; F12.10 Cannabis abuse, uncomplicated; I10 Essential (primary) hypertension; Z91.010 Allergy to peanuts; Z90.49 Acquired absence of other specified parts of digestive tract; Z79.899 Other long term (current) drug therapy; Z79.891 Long term (current) use of opiate analgesic; Z79.01 Long term (current) use of anticoagulants
CPT/HCPCS: 82962; G0378; J1364; J1650; J2060; J2270; J2405; J2765; J7030; J7131; Q0092; Q0162; Q9967

== ENCOUNTER 2019-12-08 23:28 | Inpatient (IN) | payer OTHER, SELFPAY ==
[~2019-12-08] VITALS: Ht 162.6 cm; Wt 66.8 kg
[2019-12-08 23:50] VITALS: Ht 162.6 cm; Wt 66.8 kg
[2019-12-09 00:06] LABS: BASOPHIL % 0.7 % (0-2); RED CELL DISTRIBUTION WIDTH 14.3 % (11.5-14.5)
[2019-12-09 00:10] LABS: PLATELET COUNT 481 x10^3mcL (130-400)
[2019-12-09 00:23] LABS: ALKALINE PHOSPHATASE 66 U/L (46-116); ALT/SGPT 25 U/L (14-59); AST/SGOT 23 U/L (15-37); BILIRUBIN TOTAL 0.8 mg/dL (0.20-1.00); CALCIUM 8.2 mg/dL (8.5-10.1); CARBON DIOXIDE 17.9 mmol/L (21-32); CHLORIDE SERUM 95 mmol/L (98-107); CREATININE SERUM 0.9 mg/dL (0.6-1.0); GFR1 > 60 mL/min; GLUCOSE SERUM 171 mg/dL (74-106); LIPASE 51 IU/L (73-393); TOTAL PROTEIN, SERUM 6.2 g/dL (6.4-8.2)
[2019-12-09 00:31] LABS: ALBUMIN 2.8 g/dL (3.4-5.0)
[2019-12-09 00:32] LABS: SODIUM SERUM 130 mmol/L (136-145)
[2019-12-09 00:34] LABS: POTASSIUM SERUM 2.8 mmol/L (3.5-5.1)
[2019-12-09 07:00] VITALS: BP 163/93
[2019-12-09 07:05] VITALS: BP 180/100
[2019-12-09 08:06] VITALS: BP 148/96
[2019-12-09 12:12] VITALS: BP 112/77
[2019-12-09 16:23] VITALS: BP 151/88
[2019-12-09 21:35] VITALS: BP 167/93
[2019-12-10 06:38] VITALS: BP 176/91
[2019-12-10 07:08] LABS: BASOPHIL % 0.6 % (0-2); PLATELET COUNT 338 x10^3mcL (130-400); RED CELL DISTRIBUTION WIDTH 14.4 % (11.5-14.5)
[2019-12-10 07:32] LABS: CALCIUM 7.5 mg/dL (8.5-10.1); CARBON DIOXIDE 23.2 mmol/L (21-32); CHLORIDE SERUM 100 mmol/L (98-107); CREATININE SERUM 0.8 mg/dL (0.6-1.0); GFR1 > 60 mL/min; GLUCOSE SERUM 96 mg/dL (74-106); MAGNESIUM 1.3 mg/dL (1.8-2.4); PHOSPHOROUS 4.1 mg/dL (2.5-4.9); POTASSIUM SERUM 3.2 mmol/L (3.5-5.1); SODIUM SERUM 130 mmol/L (136-145)
[2019-12-10 08:08] VITALS: BP 140/72
[2019-12-10 12:22] VITALS: BP 160/98
[2019-12-10 16:16] VITALS: BP 118/79
[2019-12-10 19:35] VITALS: BP 109/93; BP 169/93
[2019-12-11 05:24] VITALS: BP 173/96
[2019-12-11 06:45] LABS: BASOPHIL % 0.6 % (0-2); PLATELET COUNT 315 x10^3mcL (130-400); RED CELL DISTRIBUTION WIDTH 14.5 % (11.5-14.5)
[2019-12-11 07:06] LABS: CALCIUM 7.7 mg/dL (8.5-10.1); CARBON DIOXIDE 21.9 mmol/L (21-32); CHLORIDE SERUM 98 mmol/L (98-107); CREATININE SERUM 0.6 mg/dL (0.6-1.0); GFR1 > 60 mL/min; GLUCOSE SERUM 79 mg/dL (74-106); MAGNESIUM 1.5 mg/dL (1.8-2.4); PHOSPHOROUS 3.4 mg/dL (2.5-4.9); SODIUM SERUM 129 mmol/L (136-145)
[2019-12-11 07:46] VITALS: BP 182/99
[2019-12-11 11:16] VITALS: BP 177/98
[2019-12-11 15:25] VITALS: BP 193/105
[2019-12-11 20:30] VITALS: BP 192/88
[2019-12-12] VITALS (7 sets, daily range): BP systolic 143–184; BP diastolic 80–100
[2019-12-12 07:01] LABS: CALCIUM 7.7 mg/dL (8.5-10.1); CARBON DIOXIDE 22.8 mmol/L (21-32); CHLORIDE SERUM 97 mmol/L (98-107); CREATININE SERUM 0.6 mg/dL (0.6-1.0); GFR1 > 60 mL/min; GLUCOSE SERUM 77 mg/dL (74-106); MAGNESIUM 1.8 mg/dL (1.8-2.4); PHOSPHOROUS 3.4 mg/dL (2.5-4.9); SODIUM SERUM 128 mmol/L (136-145)
[2019-12-12 07:15] LABS: BASOPHIL % 0.7 % (0-2); PLATELET COUNT 310 x10^3mcL (130-400); RED CELL DISTRIBUTION WIDTH 14.5 % (11.5-14.5)
[2019-12-12 07:26] LABS: POTASSIUM SERUM 2.9 mmol/L (3.5-5.1)
[2019-12-12] MEDS ORDERED: ZOF4 PO (11:26)
[2019-12-12] MEDS ORDERED: PREVACID30 M1 PO (11:26)
[2019-12-12] MEDS ORDERED: ERYTHROCIN STE250 M1 PO (11:27)
[2019-12-13 05:43] VITALS: BP 156/95
[2019-12-13 06:05] LABS: BASOPHIL % 0.7 % (0-2); PLATELET COUNT 319 x10^3mcL (130-400)
[2019-12-13 06:10] LABS: RED CELL DISTRIBUTION WIDTH 14.9 % (11.5-14.5)
[2019-12-13 06:22] LABS: CALCIUM 7.4 mg/dL (8.5-10.1); CARBON DIOXIDE 29.2 mmol/L (21-32); CHLORIDE SERUM 103 mmol/L (98-107); CREATININE SERUM 0.6 mg/dL (0.6-1.0); GFR1 > 60 mL/min; GLUCOSE SERUM 142 mg/dL (74-106); MAGNESIUM 1.3 mg/dL (1.8-2.4); PHOSPHOROUS 2.9 mg/dL (2.5-4.9); POTASSIUM SERUM 3.2 mmol/L (3.5-5.1); SODIUM SERUM 134 mmol/L (136-145)
[2019-12-13 07:56] VITALS: BP 159/88
[2019-12-13 11:54] VITALS: BP 152/93
[2019-12-13 12:08] VITALS: BP 152/93
[2019-12-13 16:44] VITALS: BP 144/81
== END 2019-12-13 18:29 | disposition home or self-care (01) | DRG 48 ==
LOC: ED 23:28 → DU 12-09 02:53
PROVIDERS: Emergency Medicine; ADMIT Hospitalist; ATTEND Hospitalist
PROC: 02HV33Z Insertion of Infusion Device into Superior Vena Cava, Percutaneous Approach (ICD-10-PCS; principal; 2019-12-09)
PROC: B548ZZA Ultrasonography of Superior Vena Cava, Guidance (ICD-10-PCS; 2019-12-09)
DX: E11.43 Type 2 diabetes mellitus with diabetic autonomic (poly)neuropathy (principal); K31.84 Gastroparesis; E86.0 Dehydration; I10 Essential (primary) hypertension; E87.6 Hypokalemia; Z20.828 Contact with and (suspected) exposure to other viral communicable diseases; E86.1 Hypovolemia
CPT/HCPCS: 82962; G0378; J1650; J2270; J2274; J2405; J2765; J3475; J3480; J3490; J7030; J7050

== ENCOUNTER 2020-01-20 17:54 | Inpatient (IN) | payer OTHER, SELFPAY ==
[~2020-01-20] VITALS: Ht 162.6 cm; Wt 59.0 kg
[~2020-01-20 17:54] MED LIST changes: +ERYTHROCIN STE250 M1 PO; +PREVACID30 M1 PO; +ZOF4 PO
[2020-01-20 18:15] VITALS: Ht 162.6 cm; Wt 59.0 kg
[2020-01-20 20:56] LABS: BASOPHIL % 0.5 % (0-2)
[2020-01-20 20:57] LABS: PLATELET COUNT 524 x10^3mcL (130-400)
[2020-01-20 21:51] LABS: ALKALINE PHOSPHATASE 69 U/L (46-116); ALT/SGPT 21 U/L (14-59); AST/SGOT 15 U/L (15-37); BILIRUBIN TOTAL 0.7 mg/dL (0.20-1.00); CALCIUM 8.7 mg/dL (8.5-10.1); CARBON DIOXIDE 22.1 mmol/L (21-32); CHLORIDE SERUM 100 mmol/L (98-107); CREATININE SERUM 0.9 mg/dL (0.6-1.0); GFR1 > 60 mL/min; GLUCOSE SERUM 176 mg/dL (74-106); LIPASE 41 IU/L (73-393); SODIUM SERUM 136 mmol/L (136-145); TOTAL PROTEIN, SERUM 6.3 g/dL (6.4-8.2)
[2020-01-20 21:53] LABS: ALBUMIN 2.9 g/dL (3.4-5.0)
[2020-01-20 21:54] LABS: POTASSIUM SERUM 2.9 mmol/L (3.5-5.1)
[2020-01-21 06:38] LABS: BASOPHIL % 0.3 % (0-2)
[2020-01-21 06:49] LABS: ALKALINE PHOSPHATASE 56 U/L (46-116); ALT/SGPT 20 U/L (14-59); AST/SGOT 9 U/L (15-37); BILIRUBIN TOTAL 0.32 mg/dL (0.20-1.00); CARBON DIOXIDE 24.9 mmol/L (21-32); CHLORIDE SERUM 107 mmol/L (98-107); CREATININE SERUM 1.1 mg/dL (0.6-1.0); GFR1 > 60 mL/min; GLUCOSE SERUM 114 mg/dL (74-106); MAGNESIUM 1.5 mg/dL (1.8-2.4); SODIUM SERUM 141 mmol/L (136-145)
[2020-01-21 06:52] LABS: ALBUMIN 2.3 g/dL (3.4-5.0); TOTAL PROTEIN, SERUM 5.4 g/dL (6.4-8.2)
[2020-01-21 06:56] LABS: PLATELET COUNT 401 x10^3mcL (130-400); RED CELL DISTRIBUTION WIDTH 15.6 % (11.5-14.5)
[2020-01-21 12:21] VITALS: BP 168/93
[2020-01-21 16:11] VITALS: BP 183/106
[2020-01-21 18:08] VITALS: BP 179/106
[2020-01-21 20:00] VITALS: BP 184/98
[2020-01-22 05:51] VITALS: BP 149/91
[2020-01-22 07:28] LABS: ALKALINE PHOSPHATASE 49 U/L (46-116); ALT/SGPT 23 U/L (14-59); AST/SGOT 13 U/L (15-37); BILIRUBIN TOTAL 0.41 mg/dL (0.20-1.00); CARBON DIOXIDE 26.3 mmol/L (21-32); CHLORIDE SERUM 104 mmol/L (98-107); CREATININE SERUM 0.8 mg/dL (0.6-1.0); GFR1 > 60 mL/min; GLUCOSE SERUM 110 mg/dL (74-106); MAGNESIUM 1.6 mg/dL (1.8-2.4); POTASSIUM SERUM 3.6 mmol/L (3.5-5.1); SODIUM SERUM 136 mmol/L (136-145)
[2020-01-22 07:31] LABS: ALBUMIN 1.9 g/dL (3.4-5.0); TOTAL PROTEIN, SERUM 4.5 g/dL (6.4-8.2)
[2020-01-22 08:14] VITALS: BP 156/97
[2020-01-22 09:06] LABS: PLATELET COUNT 318 x10^3mcL (130-400)
[2020-01-22 09:25] LABS: BASOPHIL % 3.9 % (0-2); RED CELL DISTRIBUTION WIDTH 14.6 % (11.5-14.5)
[2020-01-22 12:46] VITALS: BP 161/64
[2020-01-22 17:22] VITALS: BP 193/118
[2020-01-22 20:17] VITALS: BP 155/94
[2020-01-23 06:23] VITALS: BP 115/75
[2020-01-23 06:50] LABS: BASOPHIL % 1.2 % (0-2); RED CELL DISTRIBUTION WIDTH 14.4 % (11.5-14.5)
[2020-01-23 06:51] LABS: PLATELET COUNT 353 x10^3mcL (130-400)
[2020-01-23 07:37] LABS: ALKALINE PHOSPHATASE 56 U/L (46-116); ALT/SGPT 26 U/L (14-59); AST/SGOT 23 U/L (15-37); BILIRUBIN TOTAL 0.4 mg/dL (0.20-1.00); CALCIUM 7.7 mg/dL (8.5-10.1); CARBON DIOXIDE 25.2 mmol/L (21-32); CHLORIDE SERUM 101 mmol/L (98-107); CREATININE SERUM 0.6 mg/dL (0.6-1.0); GFR1 > 60 mL/min; GLUCOSE SERUM 115 mg/dL (74-106); MAGNESIUM 1.4 mg/dL (1.8-2.4); POTASSIUM SERUM 3.6 mmol/L (3.5-5.1); SODIUM SERUM 134 mmol/L (136-145)
[2020-01-23 07:55] LABS: TOTAL PROTEIN, SERUM 4.6 g/dL (6.4-8.2)
[2020-01-23 08:45] VITALS: BP 169/90
[2020-01-23 12:17] VITALS: BP 159/98
[2020-01-23 18:05] VITALS: BP 162/82
[2020-01-23 19:52] VITALS: BP 183/99
[2020-01-24 05:52] VITALS: BP 177/101
[2020-01-24 07:17] LABS: ALKALINE PHOSPHATASE 58 U/L (46-116); ALT/SGPT 26 U/L (14-59); AST/SGOT 12 U/L (15-37); BILIRUBIN TOTAL 0.26 mg/dL (0.20-1.00); CALCIUM 8.2 mg/dL (8.5-10.1); CARBON DIOXIDE 26.7 mmol/L (21-32); CHLORIDE SERUM 103 mmol/L (98-107); CREATININE SERUM 0.7 mg/dL (0.6-1.0); GFR1 > 60 mL/min; GLUCOSE SERUM 92 mg/dL (74-106); MAGNESIUM 1.7 mg/dL (1.8-2.4); POTASSIUM SERUM 3.3 mmol/L (3.5-5.1); SODIUM SERUM 136 mmol/L (136-145)
[2020-01-24 07:25] LABS: TOTAL PROTEIN, SERUM 4.7 g/dL (6.4-8.2)
[2020-01-24 08:22] VITALS: BP 158/96
[2020-01-24 12:16] VITALS: BP 153/92
[2020-01-24 14:03] LABS: PLATELET COUNT 319 x10^3mcL (179-408)
[2020-01-24 14:07] LABS: RED CELL DISTRIBUTION WIDTH 14.9 % (12.3-17.7)
[2020-01-24 14:38] VITALS: BP 153/92
[2020-01-24 16:14] VITALS: BP 177/111
== END 2020-01-24 19:55 | disposition home or self-care (01) | DRG 48 ==
LOC: ED 17:54 → DU 23:49
PROVIDERS: Emergency Medicine; ADMIT Hospitalist; ATTEND Hospitalist
PROC: 02HV33Z Insertion of Infusion Device into Superior Vena Cava, Percutaneous Approach (ICD-10-PCS; principal; 2020-01-20)
DX: E11.43 Type 2 diabetes mellitus with diabetic autonomic (poly)neuropathy (principal); E83.39 Other disorders of phosphorus metabolism; Z20.828 Contact with and (suspected) exposure to other viral communicable diseases; K31.84 Gastroparesis; E87.6 Hypokalemia; I10 Essential (primary) hypertension; K21.9 Gastro-esophageal reflux disease without esophagitis; F17.210 Nicotine dependence, cigarettes, uncomplicated; Z79.899 Other long term (current) drug therapy
CPT/HCPCS: 82962; C9113; G0378; J1200; J1650; J2060; J2270; J2765; J3475; J3480; J3490; J7030

== ENCOUNTER 2020-03-07 20:42 | Emergency (ER) | payer OTHER ==
[~2020-03-07] VITALS: Ht 162.6 cm; Wt 59.9 kg
[2020-03-07 20:43] VITALS: Ht 162.6 cm; Wt 59.9 kg
[2020-03-07 23:13] LABS: CALCIUM 9.5 mg/dL (8.5-10.1); CARBON DIOXIDE 18.8 mmol/L (21-32); CHLORIDE SERUM 98 mmol/L (98-107); CREATININE SERUM 1.1 mg/dL (0.6-1.0); GFR1 > 60 mL/min; GLUCOSE SERUM 166 mg/dL (74-106); PLATELET COUNT 462 x10^3mcL (179-408); POTASSIUM SERUM 3.3 mmol/L (3.5-5.1); RED CELL DISTRIBUTION WIDTH 15.9 % (12.3-17.7); SODIUM SERUM 135 mmol/L (136-145)
[2020-03-07 23:18] LABS: ALKALINE PHOSPHATASE 73 U/L (46-116); ALT/SGPT 18 U/L (14-59); AST/SGOT 15 U/L (15-37); BILIRUBIN TOTAL 0.9 mg/dL (0.20-1.00); LIPASE 57 IU/L (73-393); TOTAL PROTEIN, SERUM 6.7 g/dL (6.4-8.2)
[2020-03-07 23:22] LABS: BAND NEUTROPHIL 0 % (0-10); BASOPHIL 0 % (0-2); MONOCYTE 5 % (0-7); SEGMENTED NEUTROPHILS 76 % (37-75); rbc morphology (normal/abnorm) NORMAL (NORMAL)
[2020-03-08 00:53] LABS: urine erythrocyte TRACE (NEGATIVE)
[2020-03-08 00:56] LABS: microscopic required? YES
[2020-03-08 01:03] LABS: AMPHETAMINE QUAL UR NONE DETECTED (See below)
[2020-03-08 03:47] VITALS: BP 153/96
== END 2020-03-08 03:47 | disposition home or self-care (01) ==
LOC: ED 20:42
PROVIDERS: Emergency Medicine
DX: E11.43 Type 2 diabetes mellitus with diabetic autonomic (poly)neuropathy (principal); K31.84 Gastroparesis; E11.65 Type 2 diabetes mellitus with hyperglycemia; I10 Essential (primary) hypertension; E87.6 Hypokalemia; F11.20 Opioid dependence, uncomplicated
CPT/HCPCS: J1170; J1885; J2765; J3490; J7030